=== PATIENT | female | born 1955 | race Caucasian/White ===

== ENCOUNTER 2020-11-04 12:53 | Outpatient (REF) | payer MEDICARE, MEDICAID, SELFPAY ==
--- NOTE | 2020-11-04 13:18 | MHC.AU.P13 ---
Hearing Instrument Follow-Up- Binaural Date of Visit: 11/04/20 Sanitation Supervisor Used: Right Ear: Practice Administrator: Phonak Model: Kriyari B50-P Serial Number: [id number] Repair Warranty: 06/07/2021 ORIGINAL WARRANTY Loss and Damage Warranty: 06/07/2021 ORIGINAL WARRANTY Battery Size: 13 Color: BEIGE Tubing: #2 SLIM TUBE Type of Mold: SLIM TIP #[id number] WARRANTY EXPIRES 01/25/2019 Left Ear: Practice Administrator: Phonak Model: BOLERO B50-P Serial Number: [id number] RepairWarranty: 06/07/2021 ORIGINAL WARRANTY Loss and Damage Warranty: 06/07/2021 ORIGINAL WARRANTY Battery Size: 13 Color: BEIGE Tubing: #2 SLIM TUBE Type of Mold: SLIM TIP #[id number] Follow-Up Summary: Hearing aids cleaned, #2 slim tubes changed, slim tips cleaned - left gasket glued as loose - both amplifying clearly. Patient now has [employer] which does NOT cover batteries, repairs, etc. No charge for today's visit. Recommendations: Recommendations: Hearing instrument follow-up or maintenance as needed. Signature: Provider: MIGUEL Rizzo-
== END 2020-11-04 12:54 | disposition home or self-care (01) ==
LOC: HO.HAP 12:53
PROVIDERS: Visit Provider Internal Medicine
DX: Z13.89 Encounter for screening for other disorder (principal)

== ENCOUNTER 2021-01-05 23:17 | Inpatient (IN) | payer OTHER, MEDICAID, SELFPAY ==
--- NOTE | ~2021-01-05 | CT_ITS ---
EXAMINATION: CT CHEST, ABDOMEN AND PELVIS WITH CONTRAST CLINICAL INFORMATION: Fall with pain COMPARISON: CT abdomen pelvis 07/08/2014 TECHNIQUE: Multidetector volumetric imaging was performed from the thoracic inlet through the pubic symphysis following administration of 75.3 mL of Omnipaque 350 intravenous contrast. Sagittal and coronal reformatted images were obtained on the technologist workstation. DLP: 2032 mGy-cm. 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 Moderate dependent changes along the posterior aspects of the lower lobes. 0.5 cm pulmonary nodule left upper lobe (series 8 image 250). 0.4 cm pulmonary nodule posterior segment left upper lobe (series 8 image 184). Trachea is midline and central airways are patent. Mediastinum: Heart size is normal. Left atrium appears prominent. Coronary artery calcifications. No pericardial effusion. No mediastinal or hilar adenopathy. Pleura: There is no significant effusion. No pleural mass or thickening. Chest Wall/Axilla: Unremarkable. ABDOMEN/PELVIS: Liver, Gallbladder, Biliary Tree: Focal nonmasslike hypodensity adjacent to the falciform ligament, classic in appearance and location for focal fatty infiltration. No other focal regions of abnormality involving the liver which is normal in size and contour. No intrahepatic biliary dilatation. Cholecystectomy. Pancreas: Unremarkable. Spleen: Unremarkable. Adrenal Glands: Unremarkable. Kidneys and Ureters: The kidneys are normal in size, shape, and attenuation. No hydronephrosis or hydroureter or calculi seen. No perinephric stranding. Small bilateral renal cysts. Bladder: Unremarkable. Gastrointestinal Tract: The small and large bowel are unremarkable. The appendix is greater than average size measuring 0.8 cm. No periappendiceal inflammatory changes to suggest acute appendicitis. The appendix is stable in its appearance since 2013. Abdominal Wall: No significant hernia is demonstrated. Lymph Nodes: No pathological lymphadenopathy within the abdomen or pelvis by CT criteria. Vascular: No abdominal aortic aneurysm. The IVC is singular and right-sided. Pelvic Viscera: Unremarkable. Osseous Structures: No acute osseous abnormality. Degenerative changes of the spine. CT/CT abdomen pelvis w con IMPRESSION: 1. No evidence of acute abnormality within the chest, abdomen or pelvis. 2. Pulmonary nodules as detailed above, the largest of which measures 0.5 cm in the left upper lobe. Resolution is limited by patient motion. According to the UPDATED 2017 Fleischner Society recommendations, the advised follow-up imaging for solid nodules < 6 mm is: LOW RISK PATIENT: No routine follow-up. HIGH RISK PATIENT: Optional CT at 12 months. 3. Other chronic and nonacute findings as above.
--- NOTE | ~2021-01-05 | CT_ITS ---
EXAM: CT HEAD WITHOUT CONTRAST CT CERVICAL SPINE INDICATION: Reason for Exam Fall, AMS TECHNIQUE: A noncontrast CT scan was performed from the skull base to the vertex. A noncontrast CT scan of the cervical spine was performed from the base of the skull through T1. Coronal and sagittal reformats were obtained at the acquisition workstation. Dose length product is 1275 mGy-cm. COMPARISON: PET/CT 10/08/2011 FINDINGS: Head: No evidence of intracranial hemorrhage or extra-axial fluid collection. No territorial infarction. Periventricular hypodensities have increased since the prior study and although nonspecific are most commonly reflective of chronic small vessel ischemic disease. No evidence of mass lesion, mass effect or midline shift. The ventricles are symmetric in configuration and normal in size. The basal cisterns are patent. The calvarium is intact. Limited views of the paranasal sinuses are unremarkable. Mastoid air cells are well aerated and middle ear cavities are clear. Cervical Spine: Cervical vertebral bodies are normal in height and alignment. Multilevel degenerative changes throughout the cervical spine characterized by degenerative disc disease, anterior osteophytes, uncovertebral spurring and mild neural foraminal stenoses. Spinous processes are well aligned and intact. The atlantodens articulation is normal. The atlantooccipital junction is unremarkable. Paravertebral muscles and fat planes are maintained. Limited views of the lung apices are unremarkable. Limited views of the thyroid are unremarkable. No bulky cervical lymphadenopathy is appreciated. CT/CT cervical spine wo con IMPRESSION: 1. No evidence of acute intracranial abnormality. 2. Degenerative changes of the cervical spine without CT evidence of acute injury.
--- NOTE | ~2021-01-05 | XR_ITS ---
EXAMINATION: XR KNEE, RIGHT CLINICAL INFORMATION: Pain, altered mental status, fall COMPARISON: None TECHNIQUE: Four views of the right knee. FINDINGS: Mild tricompartmental degenerative changes with joint space narrowing and small marginal osteophytes. Flattening of the medial femoral condyle, also likely related to degenerative changes. No radiographic evidence of acute fracture or subluxation. No significant joint effusion. Vascular calcifications. XR/XR knee RT 4V IMPRESSION: Degenerative changes without radiographic evidence of acute fracture or subluxation.
--- NOTE | ~2021-01-05 | CT_ITS ---
EXAM: CT HEAD WITHOUT CONTRAST CT CERVICAL SPINE INDICATION: Reason for Exam Fall, AMS TECHNIQUE: A noncontrast CT scan was performed from the skull base to the vertex. A noncontrast CT scan of the cervical spine was performed from the base of the skull through T1. Coronal and sagittal reformats were obtained at the acquisition workstation. Dose length product is 1275 mGy-cm. COMPARISON: PET/CT 10/08/2011 FINDINGS: Head: No evidence of intracranial hemorrhage or extra-axial fluid collection. No territorial infarction. Periventricular hypodensities have increased since the prior study and although nonspecific are most commonly reflective of chronic small vessel ischemic disease. No evidence of mass lesion, mass effect or midline shift. The ventricles are symmetric in configuration and normal in size. The basal cisterns are patent. The calvarium is intact. Limited views of the paranasal sinuses are unremarkable. Mastoid air cells are well aerated and middle ear cavities are clear. Cervical Spine: Cervical vertebral bodies are normal in height and alignment. Multilevel degenerative changes throughout the cervical spine characterized by degenerative disc disease, anterior osteophytes, uncovertebral spurring and mild neural foraminal stenoses. Spinous processes are well aligned and intact. The atlantodens articulation is normal. The atlantooccipital junction is unremarkable. Paravertebral muscles and fat planes are maintained. Limited views of the lung apices are unremarkable. Limited views of the thyroid are unremarkable. No bulky cervical lymphadenopathy is appreciated. CT/CT head/brain wo con IMPRESSION: 1. No evidence of acute intracranial abnormality. 2. Degenerative changes of the cervical spine without CT evidence of acute injury.
--- NOTE | ~2021-01-05 | XR_ITS ---
EXAMINATION: XR HAND, LEFT CLINICAL INFORMATION: Fall. Swelling. COMPARISON: Previous x-ray September 2011 TECHNIQUE: PA, lateral, and oblique views of the left hand. FINDINGS: Bone alignment is normal. No fracture or dislocation is seen. There may be mild degenerative change with joint space narrowing at the radiocarpal joint. There is mild ulnar minus variance. Joint spaces are otherwise normal. There is soft tissue arterial calcification. XR/XR hand LT min 3V IMPRESSION: No fracture or dislocation. Mild degenerative changes at the radiocarpal joint and ulnar minus variance.
--- NOTE | ~2021-01-05 | XR_ITS ---
EXAMINATION: CHEST 1 VIEW CLINICAL INFORMATION: Altered mental status. COMPARISON: 05/28/2010. TECHNIQUE: An AP view of the chest is provided. FINDINGS: The cardiac silhouette is not enlarged. The mediastinal and hilar contours are unremarkable. There are neither pleural effusions nor pneumothoraces. There are no consolidations. The osseous structures are stable. XR/XR chest 1V IMPRESSION: No evidence for acute disease.
--- NOTE | ~2021-01-05 | US_ITS ---
EXAMINATION: US VENOUS ULTRASOUND WITH DOPPLER LOWER EXTREMITY, LEFT CLINICAL INFORMATION: Left lower extremity swelling. History of DVT. COMPARISON: 06/02/2016 TECHNIQUE: Ultrasound of the deep veins is performed from the hip to the calf with compression sonography and color and pulse Doppler assessment. Spectral analysis with color-flow imaging is performed. FINDINGS: There is normal venous compression and respiratory variation and augmented flow. The visualized common femoral vein, superficial femoral vein, profunda femoral vein, and popliteal vein shows no evidence of deep venous thrombosis. The calf veins are not well visualized. There is no significant popliteal fossa cyst. If the patient's symptoms persist, followup ultrasound in 5 days 7 days might be of value to exclude proximal propagation from a non-visualized calf vein. US/US venous duplex LE IMPRESSION: No DVT demonstrated in the left lower extremity.
--- NOTE | ~2021-01-05 | CT_ITS ---
EXAMINATION: CT CHEST, ABDOMEN AND PELVIS WITH CONTRAST CLINICAL INFORMATION: Fall with pain COMPARISON: CT abdomen pelvis 07/08/2014 TECHNIQUE: Multidetector volumetric imaging was performed from the thoracic inlet through the pubic symphysis following administration of 75.3 mL of Omnipaque 350 intravenous contrast. Sagittal and coronal reformatted images were obtained on the technologist workstation. DLP: 2032 mGy-cm. 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 Moderate dependent changes along the posterior aspects of the lower lobes. 0.5 cm pulmonary nodule left upper lobe (series 8 image 250). 0.4 cm pulmonary nodule posterior segment left upper lobe (series 8 image 184). Trachea is midline and central airways are patent. Mediastinum: Heart size is normal. Left atrium appears prominent. Coronary artery calcifications. No pericardial effusion. No mediastinal or hilar adenopathy. Pleura: There is no significant effusion. No pleural mass or thickening. Chest Wall/Axilla: Unremarkable. ABDOMEN/PELVIS: Liver, Gallbladder, Biliary Tree: Focal nonmasslike hypodensity adjacent to the falciform ligament, classic in appearance and location for focal fatty infiltration. No other focal regions of abnormality involving the liver which is normal in size and contour. No intrahepatic biliary dilatation. Cholecystectomy. Pancreas: Unremarkable. Spleen: Unremarkable. Adrenal Glands: Unremarkable. Kidneys and Ureters: The kidneys are normal in size, shape, and attenuation. No hydronephrosis or hydroureter or calculi seen. No perinephric stranding. Small bilateral renal cysts. Bladder: Unremarkable. Gastrointestinal Tract: The small and large bowel are unremarkable. The appendix is greater than average size measuring 0.8 cm. No periappendiceal inflammatory changes to suggest acute appendicitis. The appendix is stable in its appearance since 2013. Abdominal Wall: No significant hernia is demonstrated. Lymph Nodes: No pathological lymphadenopathy within the abdomen or pelvis by CT criteria. Vascular: No abdominal aortic aneurysm. The IVC is singular and right-sided. Pelvic Viscera: Unremarkable. Osseous Structures: No acute osseous abnormality. Degenerative changes of the spine. CT/CT chest w con IMPRESSION: 1. No evidence of acute abnormality within the chest, abdomen or pelvis. 2. Pulmonary nodules as detailed above, the largest of which measures 0.5 cm in the left upper lobe. Resolution is limited by patient motion. According to the UPDATED 2017 Fleischner Society recommendations, the advised follow-up imaging for solid nodules < 6 mm is: LOW RISK PATIENT: No routine follow-up. HIGH RISK PATIENT: Optional CT at 12 months. 3. Other chronic and nonacute findings as above.
--- NOTE | ~2021-01-05 | MR_ITS ---
EXAMINATION: MR BRAIN WITHOUT CONTRAST CLINICAL INFORMATION: Confusion. COMPARISON: Head CT from 01/06/2021. TECHNIQUE: Multiplanar, multisequence imaging of the brain was performed without contrast. Limited study with motion artifacts. FINDINGS: No diffusion abnormalities are identified to suggest an acute or subacute infarct. The ventricles are normal in size. No mass effect or midline shift is seen. Mild chronic white matter microangiopathic changes noted. No extra-axial fluid collections are seen. The cerebellum is normal. Minimal small vessel ischemic changes present in the [place]. The gradient refocused acquisition is normal. The craniovertebral junction, marrow signal, and midline structures are normal. The major intracranial flow voids at the level of the [place] are preserved. The dural venous sinus flow voids are maintained. The mastoid air cells and paranasal sinuses are fairly well aerated. MR/MR head/brain wo con IMPRESSION: Limited study with motion artifacts. No acute intracranial process. Mild chronic white matter microangiopathy.
[2021-01-05 23:46] VITALS: BP 158/79; PULSE 116; RESP 24; O2SAT 99; BMI 31.8
[2021-01-05 23:55] LABS: Glucose, Whole Blood 159 mg/dL (60-115)
[2021-01-06] VITALS (9 sets, daily range): BP systolic 120–151; BP diastolic 79–96; PULSE 96–129; RESP 20–25; TEMP 36–37.1; O2SAT 94–98
--- NOTE | 2021-01-06 00:01 | ECG_ITS ---
Test Reason : MEDICAL Blood Pressure : / mmHG Vent. Rate : 137 BPM Atrial Rate : 136 BPM P-R Int : 000 ms QRS Dur : 110 ms QT Int : 344 ms P-R-T Axes : 000 073 -36 degrees QTc Int : 519 ms Atrial fibrillation with rapid ventricular response with premature ventricular or aberrantly conducted complexes Incomplete right bundle branch block ST & T wave abnormality, consider inferior ischemia ST & T wave abnormality, consider anterior ischemia Abnormal ECG No previous ECGs available Referred By: Loli Schmid Electronically Signed By:Pelon Moses
--- NOTE | 2021-01-06 00:30 | ED_ITS ---
HPI - General Adult General Chief complaint: General Medical Stated complaint: FALL Time Seen by Provider: 01/06/21 00:00 Source: EMS Mode of arrival: EMS History of Present Illness HPI narrative: This is 65-year-old female who is brought in by EMS who states that they found the patient on the ground after a friend called because she had not heard from her for 3 days. As per EMS patient was found in her own feces. Patient is noted to be altered on arrival and unable to provide meaningful information. Although she states that she is at the hospital she keeps saying that she needs to find her cat Debbie. Related Data Allergies Allergy/AdvReac Type Severity Reaction Status Date / Time amoxicillin Allergy Unknown Verified 04/27/18 00:00 No Known Allergies Allergy Unverified 06/26/20 15:41 Review of Systems Review of Systems: Yes Unobtainable due to mental status PMFSH Past Medical History Source: nursing notes reviewed Medical History Diabetes Social History Social History Alcohol intake: unknown Smoking Status: Smoker, status unknown Use of substances other than those prescribed or required for medical reasons: No Advance Directives: No Physical Exam Vital Signs: Vital Signs: Last Vital Signs Temp 98.7 F 01/06/21 05:59 Pulse 117 H 01/06/21 08:21 Resp 20 01/06/21 07:25 BP 151/85 H 01/06/21 08:21 Pulse Ox 98 01/06/21 07:25 Body Mass Index 31.8 VITAL SIGNS: Reviewed. GENERAL: Well developed, well nourished, in no acute distress. HEAD: Normocephalic/atraumatic, EYES: PERRLA, EOMI intact without pain, no nystagmus/pallor/icterus noted EARS: Ext canals without abnormality, TMs non-bulging and non-erythematous NOSE: Nares patent bilateral OROPHARYNX: no oral lesions noted, posterior pharynx clear, dry mucosa NECK: Supple, no adenopathy LUNGS: Normal breath sounds. No adventitious sounds or accessory muscle use. SpO2<99> CARDIOVASCULAR: IRR/IRR without noted murmurs ABDOMEN: Soft, non-tender, non-distended with bowel sounds. MUSCULOSKELETAL: No tenderness, deformities, or effusions noted on gross inspection, but abrasion noted to the right knee and otherwise there are scattered ecchymoses on all extremities as well as trunk of this patient. EXTREMITIES: No cyanosis, clubbing or edema. SKIN: Inspection of the skin reveals no rashes NEUROLOGIC: GCS-14, Alert and oriented x 2. Strength and sensation to light touch were grossly intact x 4. Course Course Course Narrative: This is a 65-year-old female with history and clinical presentation consistent with altered mental status unclear etiology in will evaluate for evidence of intracranial/infection/metabolic etiologies. Review of all investigations patient is noted to be in atrial fibrillation with RVR and unclear whether not patient has history of atrial fibrillation as she is unable to communicate meaningfully at this time and there are no prior EKGs to review. Patient provided with Lopressor for rate control, received 2L IV fluids/antibiotics/Lopressor. Patient is having left hand pain and will evaluate with an x-ray. With time patient has gradually improved in her mentation, suspect this is at least in part due to rehydration. Will repeat labs, but unclear what inciting event may have been. Case discussed with inpatient hospitalist team who was agreeable for admission. Medical Decision Making Lab Data Result diagrams: 01/06/21 02:00 01/06/21 02:00 Labs: Lab Results 01/05/21 01/06/21 01/06/21 Range/Units 23:51 01:58 01:59 WBC (4.8-10.8) X10*3/uL RBC (4.20-5.50) X10*6/uL Hgb (12.0-16.0) g/dl Hct (37-47) % MCV (80-98) fL MCH (27.0-33.0) pg MCHC (31.0-35.0) g/dl RDW (11.0-16.0) % Plt Count (160-400) X10*3/uL MPV (9.4-12.3) fL Immature Gran % (Auto) (0.0-0.4) % Neut % (Auto) (45-73) % Lymph % (Auto) (20-40) % [place] % (Auto) (2-11) % Eos % (Auto) (0-4) % Baso % (Auto) (0-2) % Lymph # (Auto) (1.2-4.9) X10*3/uL [place] # (Auto) (0.1-1.2) X10*3/uL Eos # (Auto) (0.0-0.4) X10*3/uL Baso # (Auto) (0.0-0.2) X10*3/uL Abs Immat Gran (auto) (0.00-0.03) X10*3/uL Absolute Neuts (auto) (2.0-8.3) X10*3/uL Absolute Nucleated RBC (0.0-0.012) X10*3/uL Nucleated RBC % (auto) (0.0-0.2) /100WBC PT (10.8-13.0) SEC INR (0.9-1.1) VBG pH Cancelled VBG pCO2 Cancelled VBG pO2 Cancelled VBG HCO3 Cancelled VBG O2 Saturation Cancelled VBG Base Excess Cancelled Sodium (135-145) mmol/L Potassium (3.3-5.1) mmol/L Chloride (96-108) mmol/L Carbon Dioxide (22-29) mmol/L Anion Gap (12-20) BUN (9-16) mg/dL Creatinine (0.5-1.4) mg/dL Estim Creat Clear Calc Estimated GFR POC Glucose 159 H (60-115) mg/dL Random Glucose (60-115) mg/dL Lactic Acid 2.4 H* (0.5-2.0) mmol/L Lactic Acid Fup @ 2Hr (0.5-2.0) mmol/L Calcium (8.4-10.2) mg/dL Magnesium (1.6-2.6) mg/dL Total Bilirubin (0.0-1.0) mg/dL AST (5-31) U/L ALT (0-31) U/L Alkaline Phosphatase (39-117) U/L Ammonia (13-55) umol/L Total Creatine Kinase (26-140) U/L Troponin I High Sens (<3.5-17.0) ng/L Total Protein (6.5-8.0) g/dL Albumin (3.5-5.0) g/dL Lipase (8-78) U/L Urine Color Urine Appearance Urine pH (5.0-8.0) Ur Specific [place] (1.005-1.025) Urine Protein (NEG-TRACE) MG/DL Urine Glucose (UA) (NEG) MG/DL Urine Ketones (NEG) MG/DL Urine Blood (NEG) Urine Nitrite (NEG) Ur Leukocyte Esterase (NEG) Urine RBC (0) /HPF Urine WBC (0-4) /HPF Ur Squamous Epith Cells /LPF Urine Bacteria /LPF Urine Test (NEGATIVE) Urine Opiates Screen (Not Detect) Ur Barbiturates Screen (Not Detect) Ur Phencyclidine Scrn (Not Detect) Ur Amphetamines Screen (Not Detect) U Benzodiazepines Scrn (Not Detect) Urine Cocaine Screen (Not Detect) U Marijuana (THC) Screen (Not Detect) Ethyl Alcohol mg/dL Coronavirus (PCR) (Negative) Influenza Type A (PCR) (Negative) Influenza Type B (PCR) (Negative) RSV RNA Qual (PCR) (Negative) 01/06/21 01/06/21 01/06/21 Range/Units 01:59 02:00 02:00 WBC 17.0 H (4.8-10.8) X10*3/uL RBC 4.46 (4.20-5.50) X10*6/uL Hgb 14.4 (12.0-16.0) g/dl Hct 41.1 (37-47) % MCV 92.2 (80-98) fL MCH 32.3 (27.0-33.0) pg MCHC 35.0 (31.0-35.0) g/dl RDW 12.3 (11.0-16.0) % Plt Count 182 (160-400) X10*3/uL MPV 10.1 (9.4-12.3) fL Immature Gran % (Auto) 0.5 H (0.0-0.4) % Neut % (Auto) 85.4 H (45-73) % Lymph % (Auto) 6.7 L (20-40) % [place]iteside % (Auto) 7.0 (2-11) % Eos % (Auto) 0.2 (0-4) % Baso % (Auto) 0.2 (0-2) % Lymph # (Auto) 1.1 L (1.2-4.9) X10*3/uL [place] # (Auto) 1.2 (0.1-1.2) X10*3/uL Eos # (Auto) 0.0 (0.0-0.4) X10*3/uL Baso # (Auto) 0.0 (0.0-0.2) X10*3/uL Abs Immat Gran (auto) 0.09 H (0.00-0.03) X10*3/uL Absolute Neuts (auto) 14.5 H (2.0-8.3) X10*3/uL Absolute Nucleated RBC 0.000 (0.0-0.012) X10*3/uL Nucleated RBC % (auto) 0.0 (0.0-0.2) /100WBC PT (10.8-13.0) SEC INR (0.9-1.1) VBG pH VBG pCO2 VBG pO2 VBG HCO3 VBG O2 Saturation VBG Base Excess Sodium 139 (135-145) mmol/L Potassium 4.2 (3.3-5.1) mmol/L Chloride 105 (96-108) mmol/L Carbon Dioxide 18 L (22-29) mmol/L Anion Gap 20 (12-20) BUN 29 H (9-16) mg/dL Creatinine 0.97 (0.5-1.4) mg/dL Estim Creat Clear Calc 64.2 Estimated GFR 57 POC Glucose (60-115) mg/dL Random Glucose 172 H (60-115) mg/dL Lactic Acid (0.5-2.0) mmol/L Lactic Acid Fup @ 2Hr (0.5-2.0) mmol/L Calcium 8.9 (8.4-10.2) mg/dL Magnesium 1.7 (1.6-2.6) mg/dL Total Bilirubin 1.8 H (0.0-1.0) mg/dL AST 35 H (5-31) U/L ALT 22 (0-31) U/L Alkaline Phosphatase 63 (39-117) U/L Ammonia 30 (13-55) umol/L Total Creatine Kinase (26-140) U/L Troponin I High Sens (<3.5-17.0) ng/L Total Protein 7.1 (6.5-8.0) g/dL Albumin 4.3 (3.5-5.0) g/dL Lipase 44 (8-78) U/L Urine Color Urine Appearance Urine pH (5.0-8.0) Ur Specific [place] (1.005-1.025) Urine Protein (NEG-TRACE) MG/DL Urine Glucose (UA) (NEG) MG/DL Urine Ketones (NEG) MG/DL Urine Blood (NEG) Urine Nitrite (NEG) Ur Leukocyte Esterase (NEG) Urine RBC (0) /HPF Urine WBC (0-4) /HPF Ur Squamous Epith Cells /LPF Urine Bacteria /LPF Urine Test (NEGATIVE) Urine Opiates Screen (Not Detect) Ur Barbiturates Screen (Not Detect) Ur Phencyclidine Scrn (Not Detect) Ur Amphetamines Screen (Not Detect) U Benzodiazepines Scrn (Not Detect) Urine Cocaine Screen (Not Detect) U Marijuana (THC) Screen (Not Detect) Ethyl Alcohol mg/dL Coronavirus (PCR) (Negative) Influenza Type A (PCR) (Negative) Influenza Type B (PCR) (Negative) RSV RNA Qual (PCR) (Negative) 01/06/21 01/06/21 01/06/21 Range/Units 02:00 02:00 02:00 WBC (4.8-10.8) X10*3/uL RBC (4.20-5.50) X10*6/uL Hgb (12.0-16.0) g/dl Hct (37-47) % MCV (80-98) fL MCH (27.0-33.0) pg MCHC (31.0-35.0) g/dl RDW (11.0-16.0) % Plt Count (160-400) X10*3/uL MPV (9.4-12.3) fL Immature Gran % (Auto) (0.0-0.4) % Neut % (Auto) (45-73) % Lymph % (Auto) (20-40) % [place] % (Auto) (2-11) % Eos % (Auto) (0-4) % Baso % (Auto) (0-2) % Lymph # (Auto) (1.2-4.9) X10*3/uL [place] # (Auto) (0.1-1.2) X10*3/uL Eos # (Auto) (0.0-0.4) X10*3/uL Baso # (Auto) (0.0-0.2) X10*3/uL Abs Immat Gran (auto) (0.00-0.03) X10*3/uL Absolute Neuts (auto) (2.0-8.3) X10*3/uL Absolute Nucleated RBC (0.0-0.012) X10*3/uL Nucleated RBC % (auto) (0.0-0.2) /100WBC PT (10.8-13.0) SEC INR (0.9-1.1) VBG pH VBG pCO2 VBG pO2 VBG HCO3 VBG O2 Saturation VBG Base Excess Sodium (135-145) mmol/L Potassium (3.3-5.1) mmol/L Chloride (96-108) mmol/L Carbon Dioxide (22-29) mmol/L Anion Gap (12-20) BUN (9-16) mg/dL Creatinine (0.5-1.4) mg/dL Estim Creat Clear Calc Estimated GFR POC Glucose (60-115) mg/dL Random Glucose (60-115) mg/dL Lactic Acid (0.5-2.0) mmol/L Lactic Acid Fup @ 2Hr (0.5-2.0) mmol/L Calcium (8.4-10.2) mg/dL Magnesium (1.6-2.6) mg/dL Total Bilirubin (0.0-1.0) mg/dL AST (5-31) U/L ALT (0-31) U/L Alkaline Phosphatase (39-117) U/L Ammonia (13-55) umol/L Total Creatine Kinase 770 H (26-140) U/L Troponin I High Sens 14.5 (<3.5-17.0) ng/L Total Protein (6.5-8.0) g/dL Albumin (3.5-5.0) g/dL Lipase (8-78) U/L Urine Color Urine Appearance Urine pH (5.0-8.0) Ur Specific [place] (1.005-1.025) Urine Protein (NEG-TRACE) MG/DL Urine Glucose (UA) (NEG) MG/DL Urine Ketones (NEG) MG/DL Urine Blood (NEG) Urine Nitrite (NEG) Ur Leukocyte Esterase (NEG) Urine RBC (0) /HPF Urine WBC (0-4) /HPF Ur Squamous Epith Cells /LPF Urine Bacteria /LPF Urine Test (NEGATIVE) Urine Opiates Screen (Not Detect) Ur Barbiturates Screen (Not Detect) Ur Phencyclidine Scrn (Not Detect) Ur Amphetamines Screen (Not Detect) U Benzodiazepines Scrn (Not Detect) Urine Cocaine Screen (Not Detect) U Marijuana (THC) Screen (Not Detect) Ethyl Alcohol < 10 mg/dL Coronavirus (PCR) (Negative) Influenza Type A (PCR) (Negative) Influenza Type B (PCR) (Negative) RSV RNA Qual (PCR) (Negative) 01/06/21 01/06/21 01/06/21 Range/Units 02:07 02:10 02:10 WBC (4.8-10.8) X10*3/uL RBC (4.20-5.50) X10*6/uL Hgb (12.0-16.0) g/dl Hct (37-47) % MCV (80-98) fL MCH (27.0-33.0) pg MCHC (31.0-35.0) g/dl RDW (11.0-16.0) % Plt Count (160-400) X10*3/uL MPV (9.4-12.3) fL Immature Gran % (Auto) (0.0-0.4) % Neut % (Auto) (45-73) % Lymph % (Auto) (20-40) % [place] % (Auto) (2-11) % Eos % (Auto) (0-4) % Baso % (Auto) (0-2) % Lymph # (Auto) (1.2-4.9) X10*3/uL [place] # (Auto) (0.1-1.2) X10*3/uL Eos # (Auto) (0.0-0.4) X10*3/uL Baso # (Auto) (0.0-0.2) X10*3/uL Abs Immat Gran (auto) (0.00-0.03) X10*3/uL Absolute Neuts (auto) (2.0-8.3) X10*3/uL Absolute Nucleated RBC (0.0-0.012) X10*3/uL Nucleated RBC % (auto) (0.0-0.2) /100WBC PT (10.8-13.0) SEC INR (0.9-1.1) VBG pH 7.37 VBG pCO2 33 VBG pO2 59 VBG HCO3 19 L VBG O2 Saturation 87.0 VBG Base Excess -4.6 Sodium (135-145) mmol/L Potassium (3.3-5.1) mmol/L Chloride (96-108) mmol/L Carbon Dioxide (22-29) mmol/L Anion Gap (12-20) BUN (9-16) mg/dL Creatinine (0.5-1.4) mg/dL Estim Creat Clear Calc Estimated GFR POC Glucose (60-115) mg/dL Random Glucose (60-115) mg/dL Lactic Acid (0.5-2.0) mmol/L Lactic Acid Fup @ 2Hr (0.5-2.0) mmol/L Calcium (8.4-10.2) mg/dL Magnesium (1.6-2.6) mg/dL Total Bilirubin (0.0-1.0) mg/dL AST (5-31) U/L ALT (0-31) U/L Alkaline Phosphatase (39-117) U/L Ammonia (13-55) umol/L Total Creatine Kinase (26-140) U/L Troponin I High Sens (<3.5-17.0) ng/L Total Protein (6.5-8.0) g/dL Albumin (3.5-5.0) g/dL Lipase (8-78) U/L Urine Color DARK YELLOW Urine Appearance HAZY Urine pH 5.5 (5.0-8.0) Ur Specific [place] >= 1.030 H (1.005-1.025) Urine Protein 2+ H (NEG-TRACE) MG/DL Urine Glucose (UA) NEG (NEG) MG/DL Urine Ketones 40 (NEG) MG/DL Urine Blood TRACE (NEG) Urine Nitrite NEG (NEG) Ur Leukocyte Esterase NEG (NEG) Urine RBC 0 (0) /HPF Urine WBC 0-2 (0-4) /HPF Ur Squamous Epith Cells 4+ /LPF Urine Bacteria 3+ /LPF Urine Test NEGATIVE (NEGATIVE) Urine Opiates Screen (Not Detect) Ur Barbiturates Screen (Not Detect) Ur Phencyclidine Scrn (Not Detect) Ur Amphetamines Screen (Not Detect) U Benzodiazepines Scrn (Not Detect) Urine Cocaine Screen (Not Detect) U Marijuana (THC) Screen (Not Detect) Ethyl Alcohol mg/dL Coronavirus (PCR) (Negative) Influenza Type A (PCR) (Negative) Influenza Type B (PCR) (Negative) RSV RNA Qual (PCR) (Negative) 01/06/21 01/06/21 01/06/21 Range/Units 02:10 02:11 02:11 WBC (4.8-10.8) X10*3/uL RBC (4.20-5.50) X10*6/uL Hgb (12.0-16.0) g/dl Hct (37-47) % MCV (80-98) fL MCH (27.0-33.0) pg MCHC (31.0-35.0) g/dl RDW (11.0-16.0) % Plt Count (160-400) X10*3/uL MPV (9.4-12.3) fL Immature Gran % (Auto) (0.0-0.4) % Neut % (Auto) (45-73) % Lymph % (Auto) (20-40) % [place] % (Auto) (2-11) % Eos % (Auto) (0-4) % Baso % (Auto) (0-2) % Lymph # (Auto) (1.2-4.9) X10*3/uL [place] # (Auto) (0.1-1.2) X10*3/uL Eos # (Auto) (0.0-0.4) X10*3/uL Baso # (Auto) (0.0-0.2) X10*3/uL Abs Immat Gran (auto) (0.00-0.03) X10*3/uL Absolute Neuts (auto) (2.0-8.3) X10*3/uL Absolute Nucleated RBC (0.0-0.012) X10*3/uL Nucleated RBC % (auto) (0.0-0.2) /100WBC PT 14.5 H (10.8-13.0) SEC INR 1.2 H (0.9-1.1) VBG pH VBG pCO2 VBG pO2 VBG HCO3 VBG O2 Saturation VBG Base Excess Sodium (135-145) mmol/L Potassium (3.3-5.1) mmol/L Chloride (96-108) mmol/L Carbon Dioxide (22-29) mmol/L Anion Gap (12-20) BUN (9-16) mg/dL Creatinine (0.5-1.4) mg/dL Estim Creat Clear Calc Estimated GFR POC Glucose (60-115) mg/dL Random Glucose (60-115) mg/dL Lactic Acid (0.5-2.0) mmol/L Lactic Acid Fup @ 2Hr (0.5-2.0) mmol/L Calcium (8.4-10.2) mg/dL Magnesium (1.6-2.6) mg/dL Total Bilirubin (0.0-1.0) mg/dL AST (5-31) U/L ALT (0-31) U/L Alkaline Phosphatase (39-117) U/L Ammonia (13-55) umol/L Total Creatine Kinase (26-140) U/L Troponin I High Sens (<3.5-17.0) ng/L Total Protein (6.5-8.0) g/dL Albumin (3.5-5.0) g/dL Lipase (8-78) U/L Urine Color Urine Appearance Urine pH (5.0-8.0) Ur Specific [place] (1.005-1.025) Urine Protein (NEG-TRACE) MG/DL Urine Glucose (UA) (NEG) MG/DL Urine Ketones (NEG) MG/DL Urine Blood (NEG) Urine Nitrite (NEG) Ur Leukocyte Esterase (NEG) Urine RBC (0) /HPF Urine WBC (0-4) /HPF Ur Squamous Epith Cells /LPF Urine Bacteria /LPF Urine Test (NEGATIVE) Urine Opiates Screen Not Detected (Not Detect) Ur Barbiturates Screen Not Detected (Not Detect) Ur Phencyclidine Scrn Not Detected (Not Detect) Ur Amphetamines Screen Not Detected (Not Detect) U Benzodiazepines Scrn Not Detected (Not Detect) Urine Cocaine Screen Not Detected (Not Detect) U Marijuana (THC) Screen Not Detected (Not Detect) Ethyl Alcohol mg/dL Coronavirus (PCR) NEGATIVE (Negative) Influenza Type A (PCR) NEGATIVE (Negative) Influenza Type B (PCR) NEGATIVE (Negative) RSV RNA Qual (PCR) NEGATIVE (Negative) 01/06/21 Range/Units 05:58 WBC (4.8-10.8) X10*3/uL RBC (4.20-5.50) X10*6/uL Hgb (12.0-16.0) g/dl Hct (37-47) % MCV (80-98) fL MCH (27.0-33.0) pg MCHC (31.0-35.0) g/dl RDW (11.0-16.0) % Plt Count (160-400) X10*3/uL MPV (9.4-12.3) fL Immature Gran % (Auto) (0.0-0.4) % Neut % (Auto) (45-73) % Lymph % (Auto) (20-40) % [place] % (Auto) (2-11) % Eos % (Auto) (0-4) % Baso % (Auto) (0-2) % Lymph # (Auto) (1.2-4.9) X10*3/uL [place] # (Auto) (0.1-1.2) X10*3/uL Eos # (Auto) (0.0-0.4) X10*3/uL Baso # (Auto) (0.0-0.2) X10*3/uL Abs Immat Gran (auto) (0.00-0.03) X10*3/uL Absolute Neuts (auto) (2.0-8.3) X10*3/uL Absolute Nucleated RBC (0.0-0.012) X10*3/uL Nucleated RBC % (auto) (0.0-0.2) /100WBC PT (10.8-13.0) SEC INR (0.9-1.1) VBG pH VBG pCO2 VBG pO2 VBG HCO3 VBG O2 Saturation VBG Base Excess Sodium (135-145) mmol/L Potassium (3.3-5.1) mmol/L Chloride (96-108) mmol/L Carbon Dioxide (22-29) mmol/L Anion Gap (12-20) BUN (9-16) mg/dL Creatinine (0.5-1.4) mg/dL Estim Creat Clear Calc Estimated GFR POC Glucose (60-115) mg/dL Random Glucose (60-115) mg/dL Lactic Acid (0.5-2.0) mmol/L Lactic Acid Fup @ 2Hr 1.6 (0.5-2.0) mmol/L Calcium (8.4-10.2) mg/dL Magnesium (1.6-2.6) mg/dL Total Bilirubin (0.0-1.0) mg/dL AST (5-31) U/L ALT (0-31) U/L Alkaline Phosphatase (39-117) U/L Ammonia (13-55) umol/L Total Creatine Kinase (26-140) U/L Troponin I High Sens (<3.5-17.0) ng/L Total Protein (6.5-8.0) g/dL Albumin (3.5-5.0) g/dL Lipase (8-78) U/L Urine Color Urine Appearance Urine pH (5.0-8.0) Ur Specific [place] (1.005-1.025) Urine Protein (NEG-TRACE) MG/DL Urine Glucose (UA) (NEG) MG/DL Urine Ketones (NEG) MG/DL Urine Blood (NEG) Urine Nitrite (NEG) Ur Leukocyte Esterase (NEG) Urine RBC (0) /HPF Urine WBC (0-4) /HPF Ur Squamous Epith Cells /LPF Urine Bacteria /LPF Urine Test (NEGATIVE) Urine Opiates Screen (Not Detect) Ur Barbiturates Screen (Not Detect) Ur Phencyclidine Scrn (Not Detect) Ur Amphetamines Screen (Not Detect) U Benzodiazepines Scrn (Not Detect) Urine Cocaine Screen (Not Detect) U Marijuana (THC) Screen (Not Detect) Ethyl Alcohol mg/dL Coronavirus (PCR) (Negative) Influenza Type A (PCR) (Negative) Influenza Type B (PCR) (Negative) RSV RNA Qual (PCR) (Negative) ECG Data Attestation: I personally reviewed and interpreted this ECG as follows: Prior ECG tracings: not available for review Interpretation: Atrial fibrillation with RVR, HR-137, incomplete right bundle branch block Discharge Plan Discharge Clinical Impression: Atrial fibrillation with RVR Rhabdomyolysis Qualifiers: Rhabdomyolysis type: traumatic Encounter type: initial encounter Qualified Code(s): T79.6XXA - Traumatic ischemia of muscle, initial encounter Patient Disposition: Admitted As Inpatient
--- NOTE | 2021-01-06 00:49 | PC.NURSE ---
THIS PCT REPORT TO RN ISEBELLE THAT PATIENT IS COMBATIVE ,NOT ABLE TO GET EKG OR STRAIGHT CATH .
[2021-01-06] MEDS: 0.9 % Sodium Chloride 2,000 ML 999 ML IV (01:03)
[2021-01-06] MEDS: LORazepam 2 MG/ML VIAL 1 MG IVPUSH (01:03)
--- NOTE | 2021-01-06 01:29 | PC.NURSE ---
Pt refusing lab draw, and straight cath. Attempting EKG now. Multiple bruises/abrasions noted throughout body of unknown cause/origin. Upon arrival, pt was soiled with a combination of dried and fresh stool and urine. Denied pain when asked, but upon palpation, pain noted to bilateral knees (worse on the right side), left side of chest, and left eye. Pt states I need to find my chava Debbie , and states I'm at the hospital . Pt does not know which hospital she is at, doesn't know time, and is refusing to state her own name. Pt medicated as ordered, awaiting medication to take effect and will reattempt, and reask about blood draw at a later time.
[2021-01-06 02:06] LABS: Basophils Percent Auto 0.2 % (0-2); Eosinophils Percent Auto 0.2 % (0-4); Hematocrit 41.1 % (37-47); Hemoglobin 14.4 g/dl (12.0-16.0); Imm Gran Abs Auto 0.09 X10*3/uL (0.00-0.03); Imm Gran Pct Auto 0.5 % (0.0-0.4); Lymphocytes Absolute Auto 1.1 X10*3/uL (1.2-4.9); Lymphocytes Percent Auto 6.7 % (20-40); MANUAL DIFF FLAG NO; Mean Corpuscular Hemoglobin 32.3 pg (27.0-33.0); Mean Corpuscular Volume 92.2 fL (80-98); Mean Platelet Volume 10.1 fL (9.4-12.3); Monocytes Absolute Auto 1.2 X10*3/uL (0.1-1.2); Neutrophils Absolute Auto 14.5 X10*3/uL (2.0-8.3); Neutrophils Percent Auto 85.4 % (45-73); Platelet Count 182 X10*3/uL (160-400); Red Blood Count 4.46 X10*6/uL (4.20-5.50); Red Cell Distribution Width 12.3 % (11.0-16.0)
[2021-01-06 02:12] LABS: VBG Base Excess -4.6 mmol/L; VBG HCO3 19 mmol/L (22-26); VBG pCO2 33 mmHg; VBG pH 7.37 (7.32-7.43); VBG pO2 59 mmHg
--- NOTE | 2021-01-06 02:17 | PC.NURSE ---
RN BRENDAN AWARE OF PATIENT HIGH HEART RATE .
--- NOTE | 2021-01-06 02:18 | PC.NURSE ---
PATIENT LAB DRAW ,EKG AND STRAIGHT CATH AND COVID SWAB WAS DONE BY THIS PCT AND PCT KAIA .
[2021-01-06 02:24] LABS: INTERNATIONAL NORM RATIO 1.2 (0.9-1.1); Prothrombin Time 14.5 SEC (10.8-13.0)
[2021-01-06 02:26] LABS: Glucose Urine UA NEG (NEG); Leukocyte Esterase Urine NEG (NEG); Nitrite Urine NEG (NEG); PH 5.5 (5.0-8.0); Specific Gravity - Urine >= 1.030 (1.005-1.025); Urine Blood TRACE (NEG); Urine Ketones 40 MG/DL (NEG); Urine Protein 2+ MG/DL (NEG-TRACE)
[2021-01-06 02:27] LABS: Appearance Urine HAZY; Color Urine DARK YELLOW
[2021-01-06 02:28] LABS: UPreg QC Valid YES; Urine Pregnancy NEGATIVE (NEGATIVE)
[2021-01-06 02:34] LABS: Bacteria Urine 3+ /LPF; RBC Urine 0 /HPF (0); Squamous Epithelial Cell Urine 4+ /LPF; WBC Urine 0-2 /HPF (0-4)
[2021-01-06 02:35] LABS: Alanine Aminotransferase 22 U/L (0-31); Albumin Level 4.3 g/dL (3.5-5.0); Alkaline Phosphatase 63 U/L (39-117); Anion Gap 20 (12-20); Aspartate Amino Transferase 35 U/L (5-31); Bilirubin Total 1.8 mg/dL (0.0-1.0); Blood Urea Nitrogen 29 mg/dL (9-16); Calcium 8.9 mg/dL (8.4-10.2); Carbon Dioxide 18 mmol/L (22-29); Chloride 105 mmol/L (96-108); Creatinine Clr Calc Pharmacy 64.2; Estimated Glomerular Filt Rate 57; Glucose Random 172 mg/dL (60-115); Lipase 44 U/L (8-78); Magnesium 1.7 mg/dL (1.6-2.6); Potassium 4.2 mmol/L (3.3-5.1); Sodium 139 mmol/L (135-145); Total Protein 7.1 g/dL (6.5-8.0)
[2021-01-06 02:35] LABS: Venous Blood Gas Refer to POC result
[2021-01-06 02:43] LABS: Lactic Acid 2.4 mmol/L (0.5-2.0)
[2021-01-06 02:44] LABS: Ammonia 30 umol/L (13-55)
[2021-01-06 02:44] LABS: Ethanol < 10 mg/dL
[2021-01-06] MEDS: cefTRIAXone sodium 1 GM in 0.9 % Sodium Chloride 50 ML IV (02:47)
[2021-01-06] MEDS: Metoprolol Tartrate 5 MG/5 ML VIAL IVPUSH ×2 (02:47→08:21)
[2021-01-06 02:55] LABS: Influenza A PCR NEGATIVE (Negative); Influenza B PCR NEGATIVE (Negative); Resp Syncy Virus RNA Qual PCR NEGATIVE (Negative); SARS COV2 PCR INHOUSE NEGATIVE (Negative)
[2021-01-06 02:58] LABS: Amphetamine Screen Urine Not Detected (Not Detect); Barbiturates, Urine Not Detected (Not Detect); Benzodiazepines Screen Urine Not Detected (Not Detect); Cannabinoid Screen Urine Not Detected (Not Detect); Cocaine Screen Urine Not Detected (Not Detect); Opiate Screen Urine Not Detected (Not Detect); Phencyclidine Screen Urine Not Detected (Not Detect)
[2021-01-06 03:05] LABS: Troponin-I High Sensitivity 14.5 ng/L (<3.5-17.0)
[2021-01-06 04:05] LABS: Reflex Lactate? Lactic Acid Added
[2021-01-06 06:27] LABS: ~Lactic Acid-LAB USE ONLY 1.6 mmol/L (0.5-2.0)
[2021-01-06] MEDS: 0.9 % Sodium Chloride 1,000 ML 999 ML IV (07:24)
[2021-01-06] MEDS: iohexoL 350 MG/ML 75 ML INFUS..BTL IV (07:25)
--- NOTE | 2021-01-06 07:26 | PC.NURSE ---
Pt is awake, alert, answering questions appropriately.
[2021-01-06 09:28] LABS: Alanine Aminotransferase 23 U/L (0-31); Albumin Level 3.7 g/dL (3.5-5.0); Alkaline Phosphatase 57 U/L (39-117); Anion Gap 18 (12-20); Aspartate Amino Transferase 44 U/L (5-31); Bilirubin Total 1.5 mg/dL (0.0-1.0); Blood Urea Nitrogen 25 mg/dL (9-16); Calcium 8.2 mg/dL (8.4-10.2); Carbon Dioxide 19 mmol/L (22-29); Chloride 108 mmol/L (96-108); Estimated Glomerular Filt Rate > 60; Glucose Random 156 mg/dL (60-115); Potassium 4.7 mmol/L (3.3-5.1); Sodium 140 mmol/L (135-145); Total Protein 6.5 g/dL (6.5-8.0)
[2021-01-06 10:08] LABS: MANUAL DIFF FLAG NO
[2021-01-06 10:10] LABS: Basophils Percent Auto 0.2 % (0-2); Eosinophils Absolute Auto 0.1 X10*3/uL (0.0-0.4); Eosinophils Percent Auto 0.6 % (0-4); Hematocrit 37.9 % (37-47); Hemoglobin 13.1 g/dl (12.0-16.0); Imm Gran Abs Auto 0.06 X10*3/uL (0.00-0.03); Imm Gran Pct Auto 0.4 % (0.0-0.4); Lymphocytes Absolute Auto 1.5 X10*3/uL (1.2-4.9); Lymphocytes Percent Auto 9.5 % (20-40); Mean Corpuscular HGB Conc 34.6 g/dl (31.0-35.0); Mean Corpuscular Hemoglobin 32.1 pg (27.0-33.0); Mean Corpuscular Volume 92.9 fL (80-98); Mean Platelet Volume 9.8 fL (9.4-12.3); Monocytes Absolute Auto 1.3 X10*3/uL (0.1-1.2); Monocytes Percent Auto 8.4 % (2-11); Neutrophils Absolute Auto 12.8 X10*3/uL (2.0-8.3); Neutrophils Percent Auto 80.9 % (45-73); Platelet Count 162 X10*3/uL (160-400); Red Blood Count 4.08 X10*6/uL (4.20-5.50); Red Cell Distribution Width 12.4 % (11.0-16.0); White Blood Count 15.8 X10*3/uL (4.8-10.8)
[2021-01-06] MEDS: Metoprolol Tartrate 25 MG TABLET PO ×3 (14:13→21:16)
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
[2021-01-06] MEDS: 0.9 % Sodium Chloride Flush 3 ML SYRINGE IVFLUSH (15:55)
[2021-01-06] MEDS: Enoxaparin Sodium 40 MG/0.4 ML SYRINGE SUBCUT (15:55)
[2021-01-06] MEDS: Doxycycline Hyclate 100 MG in 0.9 % Sodium Chloride 250 ML 166.67 MG IV (15:55)
[2021-01-06 16:09] LABS: Glucose, Whole Blood 161 mg/dL (60-115)
--- NOTE | 2021-01-06 16:20 | PM.CNCAR ---
History of Present Illness History of Present Illness Date of Service: 01/06/21 Requesting physician: Yoana Murguia Chief complaint: AMS, NEW ONSET AFIB W RVR Narrative: 65-year-old female who presented with change in mental status. It appears her friend who knows her from [facility] try to contact her few times and could not reach out to her for 2 days. They eventually called [employer] and went to her home and she was found down or on the floor. She does not remember how she got there. She said she went to bed and then was found by cups. It appears she was down for some time. She was also quite unkempt. She has been noticed to have rhabdomyolysis. She is currently mildly confused. She is saying her left hand does not feel normal. She is left handed. She denies any chest discomfort shortness of breath. No history of stroke. Her left leg was weak as per the friend and she we used a brace for the left leg in the past. She has been noticed to have atrial fibrillation with rapid ventricular response. We have been asked to help with management. She is denying any palpitations right now. [facility] Past Medical History Medical History Diabetes Social History Social History Household Members: None Housing: House Do you presently have visiting nurse or other home services: No Alcohol intake: unknown Smoking Status: Smoker, status unknown Use of substances other than those prescribed or required for medical reasons: No Have you been hit, kicked, punched, or otherwise hurt by someone within the past year? If so, by whom?: No Do you feel safe in your current relationship?: No Current Relationship Is there a partner from a previous relationship who is making you feel unsafe now?: No Are you made to feel afraid or neglected: No Advance Directives: No Do you have thoughts of harming others: None Do you have a plan to hurt others: No Plan Recently lost weight without trying: No Meds Allergies Allergy/AdvReac Type Severity Reaction Status Date / Time amoxicillin Allergy Unknown Unknown Verified 01/06/21 15:44 Active Medications: Current Medications Generic Name Dose Route Start Last Admin Trade Name Freq PRN Reason Stop Dose Admin Acetaminophen 650 mg 01/06/21 14:45 Acetaminophen 325 Mg Tablet PO Q6H PRN Pain, Mild (Pain Scale 1-3) Apixaban 5 mg 01/07/21 09:00 Apixaban 5 Mg Tablet PO BID [facility] Ceftriaxone Sodium 1 gm/ 50 mls @ 100 mls/hr 01/07/21 06:00 Sodium Chloride IV Q24H AMAURY Doxycycline Hyclate 100 mg/ 250 mls @ 166.67 mls/hr 01/06/21 15:00 01/06/21 15:55 Sodium Chloride IV 166.67 mls/hr Q12H AMAURY Administration Ketorolac Tromethamine 15 mg 01/06/21 14:45 Ketorolac Tromethamine 30 Mg/Ml Vial IVPUSH 01/11/21 14:44 Q6H PRN Pain, Moderate (Pain Scale 4-6 Metoprolol Tartrate 25 mg 01/06/21 13:00 01/06/21 14:13 Metoprolol Tartrate 25 Mg Tablet PO 25 mg QID [facility] Administration Protocol Ondansetron HCl 4 mg 01/06/21 14:45 Ondansetron Hcl 4 Mg/2 Ml Vial IVPUSH Q8H PRN Nausea and Vomiting Sodium Chloride 3 ml 01/06/21 16:00 01/06/21 15:55 0.9 % Sodium Chloride Flush 3 Ml Syringe IVFLUSH 3 ml QSHIFT AMAURY Administration Physical Exam Vital Signs: Vital Signs: Last Vital Signs Temp 96.8 F 01/06/21 15:03 Pulse 96 01/06/21 15:03 Resp 22 H 01/06/21 15:03 BP 140/94 H 01/06/21 15:03 Pulse Ox 97 01/06/21 15:03 Body Mass Index 31.8 GENERAL APPEARANCE: in no acute distress. HEENT: unremarkable. HEAD: normocephalic, atraumatic. NECK/THYROID: no carotid bruit, no jugular venous distention. SKIN: Abrasion on left arm. HEART: no murmurs, irregular rate and rhythm, S1, S2 normal. LUNGS: clear to auscultation bilaterally. ABDOMEN: normal, bowel sounds present, soft, nontender, nondistended. EXTREMITIES: no clubbing, cyanosis, or edema. PERIPHERAL PULSES: equal. NEUROLOGIC: Mildly weak in left arm. Otherwise awake and alert and following simple commands. PSYCH: mood/affect full range. Results Labs and Meds Result diagrams: 01/06/21 10:04 01/06/21 08:53 Lab results: Laboratory Results - last 24 hr 01/05/21 01/06/21 01/06/21 23:51 01:58 01:59 WBC RBC Hgb Hct MCV MCH MCHC RDW Plt Count MPV Immature Gran % (Auto) Neut % (Auto) Lymph % (Auto) [place] % (Auto) Eos % (Auto) Baso % (Auto) Lymph # (Auto) [place] # (Auto) Eos # (Auto) Baso # (Auto) Abs Immat Gran (auto) Absolute Neuts (auto) Absolute Nucleated RBC Nucleated RBC % (auto) PT INR VBG pH Cancelled VBG pCO2 Cancelled VBG pO2 Cancelled VBG HCO3 Cancelled VBG O2 Saturation Cancelled VBG Base Excess Cancelled Sodium Potassium Chloride Carbon Dioxide Anion Gap BUN Creatinine Estim Creat Clear Calc Estimated GFR POC Glucose 159 H Random Glucose Lactic Acid 2.4 H* Lactic Acid Fup @ 2Hr Calcium Magnesium Total Bilirubin AST ALT Alkaline Phosphatase Ammonia Total Creatine Kinase Troponin I High Sens Total Protein Albumin Lipase Urine Color Urine Appearance Urine pH Ur Specific [place] Urine Protein Urine Glucose (UA) Urine Ketones Urine Blood Urine Nitrite Ur Leukocyte Esterase Urine RBC Urine WBC Ur Squamous Epith Cells Urine Bacteria Urine Test Urine Opiates Screen Ur Barbiturates Screen Ur Phencyclidine Scrn Ur Amphetamines Screen U Benzodiazepines Scrn Urine Cocaine Screen U Marijuana (THC) Screen Ethyl Alcohol Coronavirus (PCR) Influenza Type A (PCR) Influenza Type B (PCR) RSV RNA Qual (PCR) 01/06/21 01/06/21 01/06/21 01:59 02:00 02:00 WBC 17.0 H RBC 4.46 Hgb 14.4 Hct 41.1 MCV 92.2 MCH 32.3 MCHC 35.0 RDW 12.3 Plt Count 182 MPV 10.1 Immature Gran % (Auto) 0.5 H Neut % (Auto) 85.4 H Lymph % (Auto) 6.7 L [place]atte % (Auto) 7.0 Eos % (Auto) 0.2 Baso % (Auto) 0.2 Lymph # (Auto) 1.1 L [place] # (Auto) 1.2 Eos # (Auto) 0.0 Baso # (Auto) 0.0 Abs Immat Gran (auto) 0.09 H Absolute Neuts (auto) 14.5 H Absolute Nucleated RBC 0.000 Nucleated RBC % (auto) 0.0 PT INR VBG pH VBG pCO2 VBG pO2 VBG HCO3 VBG O2 Saturation VBG Base Excess Sodium 139 Potassium 4.2 Chloride 105 Carbon Dioxide 18 L Anion Gap 20 BUN 29 H Creatinine 0.97 Estim Creat Clear Calc 64.2 Estimated GFR 57 POC Glucose Random Glucose 172 H Lactic Acid Lactic Acid Fup @ 2Hr Calcium 8.9 Magnesium 1.7 Total Bilirubin 1.8 H AST 35 H ALT 22 Alkaline Phosphatase 63 Ammonia 30 Total Creatine Kinase Troponin I High Sens Total Protein 7.1 Albumin 4.3 Lipase 44 Urine Color Urine Appearance Urine pH Ur Specific [place] Urine Protein Urine Glucose (UA) Urine Ketones Urine Blood Urine Nitrite Ur Leukocyte Esterase Urine RBC Urine WBC Ur Squamous Epith Cells Urine Bacteria Urine Test Urine Opiates Screen Ur Barbiturates Screen Ur Phencyclidine Scrn Ur Amphetamines Screen U Benzodiazepines Scrn Urine Cocaine Screen U Marijuana (THC) Screen Ethyl Alcohol Coronavirus (PCR) Influenza Type A (PCR) Influenza Type B (PCR) RSV RNA Qual (PCR) 01/06/21 01/06/21 01/06/21 02:00 02:00 02:00 WBC RBC Hgb Hct MCV MCH MCHC RDW Plt Count MPV Immature Gran % (Auto) Neut % (Auto) Lymph % (Auto) [place] % (Auto) Eos % (Auto) Baso % (Auto) Lymph # (Auto) [place] # (Auto) Eos # (Auto) Baso # (Auto) Abs Immat Gran (auto) Absolute Neuts (auto) Absolute Nucleated RBC Nucleated RBC % (auto) PT INR VBG pH VBG pCO2 VBG pO2 VBG HCO3 VBG O2 Saturation VBG Base Excess Sodium Potassium Chloride Carbon Dioxide Anion Gap BUN Creatinine Estim Creat Clear Calc Estimated GFR POC Glucose Random Glucose Lactic Acid Lactic Acid Fup @ 2Hr Calcium Magnesium Total Bilirubin AST ALT Alkaline Phosphatase Ammonia Total Creatine Kinase 770 H Troponin I High Sens 14.5 Total Protein Albumin Lipase Urine Color Urine Appearance Urine pH Ur Specific [place] Urine Protein Urine Glucose (UA) Urine Ketones Urine Blood Urine Nitrite Ur Leukocyte Esterase Urine RBC Urine WBC Ur Squamous Epith Cells Urine Bacteria Urine Test Urine Opiates Screen Ur Barbiturates Screen Ur Phencyclidine Scrn Ur Amphetamines Screen U Benzodiazepines Scrn Urine Cocaine Screen U Marijuana (THC) Screen Ethyl Alcohol < 10 Coronavirus (PCR) Influenza Type A (PCR) Influenza Type B (PCR) RSV RNA Qual (PCR) 01/06/21 01/06/21 01/06/21 02:07 02:10 02:10 WBC RBC Hgb Hct MCV MCH MCHC RDW Plt Count MPV Immature Gran % (Auto) Neut % (Auto) Lymph % (Auto) [place]atte % (Auto) Eos % (Auto) Baso % (Auto) Lymph # (Auto) [place] # (Auto) Eos # (Auto) Baso # (Auto) Abs Immat Gran (auto) Absolute Neuts (auto) Absolute Nucleated RBC Nucleated RBC % (auto) PT INR VBG pH 7.37 VBG pCO2 33 VBG pO2 59 VBG HCO3 19 L VBG O2 Saturation 87.0 VBG Base Excess -4.6 Sodium Potassium Chloride Carbon Dioxide Anion Gap BUN Creatinine Estim Creat Clear Calc Estimated GFR POC Glucose Random Glucose Lactic Acid Lactic Acid Fup @ 2Hr Calcium Magnesium Total Bilirubin AST ALT Alkaline Phosphatase Ammonia Total Creatine Kinase Troponin I High Sens Total Protein Albumin Lipase Urine Color DARK YELLOW Urine Appearance HAZY Urine pH 5.5 Ur Specific [place] >= 1.030 H Urine Protein 2+ H Urine Glucose (UA) NEG Urine Ketones 40 Urine Blood TRACE Urine Nitrite NEG Ur Leukocyte Esterase NEG Urine RBC 0 Urine WBC 0-2 Ur Squamous Epith Cells 4+ Urine Bacteria 3+ Urine Test NEGATIVE Urine Opiates Screen Ur Barbiturates Screen Ur Phencyclidine Scrn Ur Amphetamines Screen U Benzodiazepines Scrn Urine Cocaine Screen U Marijuana (THC) Screen Ethyl Alcohol Coronavirus (PCR) Influenza Type A (PCR) Influenza Type B (PCR) RSV RNA Qual (PCR) 01/06/21 01/06/21 01/06/21 02:10 02:11 02:11 WBC RBC Hgb Hct MCV MCH MCHC RDW Plt Count MPV Immature Gran % (Auto) Neut % (Auto) Lymph % (Auto) [place] % (Auto) Eos % (Auto) Baso % (Auto) Lymph # (Auto) [place] # (Auto) Eos # (Auto) Baso # (Auto) Abs Immat Gran (auto) Absolute Neuts (auto) Absolute Nucleated RBC Nucleated RBC % (auto) PT 14.5 H INR 1.2 H VBG pH VBG pCO2 VBG pO2 VBG HCO3 VBG O2 Saturation VBG Base Excess Sodium Potassium Chloride Carbon Dioxide Anion Gap BUN Creatinine Estim Creat Clear Calc Estimated GFR POC Glucose Random Glucose Lactic Acid Lactic Acid Fup @ 2Hr Calcium Magnesium Total Bilirubin AST ALT Alkaline Phosphatase Ammonia Total Creatine Kinase Troponin I High Sens Total Protein Albumin Lipase Urine Color Urine Appearance Urine pH Ur Specific [place] Urine Protein Urine Glucose (UA) Urine Ketones Urine Blood Urine Nitrite Ur Leukocyte Esterase Urine RBC Urine WBC Ur Squamous Epith Cells Urine Bacteria Urine Test Urine Opiates Screen Not Detected Ur Barbiturates Screen Not Detected Ur Phencyclidine Scrn Not Detected Ur Amphetamines Screen Not Detected U Benzodiazepines Scrn Not Detected Urine Cocaine Screen Not Detected U Marijuana (THC) Screen Not Detected Ethyl Alcohol Coronavirus (PCR) NEGATIVE Influenza Type A (PCR) NEGATIVE Influenza Type B (PCR) NEGATIVE RSV RNA Qual (PCR) NEGATIVE 01/06/21 01/06/21 01/06/21 05:58 08:53 08:53 WBC RBC Hgb Hct MCV MCH MCHC RDW Plt Count MPV Immature Gran % (Auto) Neut % (Auto) Lymph % (Auto) [place] % (Auto) Eos % (Auto) Baso % (Auto) Lymph # (Auto) [place] # (Auto) Eos # (Auto) Baso # (Auto) Abs Immat Gran (auto) Absolute Neuts (auto) Absolute Nucleated RBC Nucleated RBC % (auto) PT INR VBG pH VBG pCO2 VBG pO2 VBG HCO3 VBG O2 Saturation VBG Base Excess Sodium 140 Potassium 4.7 Chloride 108 Carbon Dioxide 19 L Anion Gap 18 BUN 25 H Creatinine 0.82 Estim Creat Clear Calc 76.0 Estimated GFR > 60 POC Glucose Random Glucose 156 H Lactic Acid Lactic Acid Fup @ 2Hr 1.6 Calcium 8.2 L D Magnesium Total Bilirubin 1.5 H AST 44 H ALT 23 Alkaline Phosphatase 57 Ammonia Total Creatine Kinase Troponin I High Sens 12.0 Total Protein 6.5 Albumin 3.7 Lipase Urine Color Urine Appearance Urine pH Ur Specific [place] Urine Protein Urine Glucose (UA) Urine Ketones Urine Blood Urine Nitrite Ur Leukocyte Esterase Urine RBC Urine WBC Ur Squamous Epith Cells Urine Bacteria Urine Test Urine Opiates Screen Ur Barbiturates Screen Ur Phencyclidine Scrn Ur Amphetamines Screen U Benzodiazepines Scrn Urine Cocaine Screen U Marijuana (THC) Screen Ethyl Alcohol Coronavirus (PCR) Influenza Type A (PCR) Influenza Type B (PCR) RSV RNA Qual (PCR) 01/06/21 01/06/21 10:04 16:02 WBC 15.8 H RBC 4.08 L Hgb 13.1 Hct 37.9 MCV 92.9 MCH 32.1 MCHC 34.6 RDW 12.4 Plt Count 162 MPV 9.8 Immature Gran % (Auto) 0.4 Neut % (Auto) 80.9 H Lymph % (Auto) 9.5 L [place] % (Auto) 8.4 Eos % (Auto) 0.6 Baso % (Auto) 0.2 Lymph # (Auto) 1.5 Platte # (Auto) 1.3 H Eos # (Auto) 0.1 Baso # (Auto) 0.0 Abs Immat Gran (auto) 0.06 H Absolute Neuts (auto) 12.8 H Absolute Nucleated RBC 0.000 Nucleated RBC % (auto) 0.0 PT INR VBG pH VBG pCO2 VBG pO2 VBG HCO3 VBG O2 Saturation VBG Base Excess Sodium Potassium Chloride Carbon Dioxide Anion Gap BUN Creatinine Estim Creat Clear Calc Estimated GFR POC Glucose 161 H Random Glucose Lactic Acid Lactic Acid Fup @ 2Hr Calcium Magnesium Total Bilirubin AST ALT Alkaline Phosphatase Ammonia Total Creatine Kinase Troponin I High Sens Total Protein Albumin Lipase Urine Color Urine Appearance Urine pH Ur Specific [place] Urine Protein Urine Glucose (UA) Urine Ketones Urine Blood Urine Nitrite Ur Leukocyte Esterase Urine RBC Urine WBC Ur Squamous Epith Cells Urine Bacteria Urine Test Urine Opiates Screen Ur Barbiturates Screen Ur Phencyclidine Scrn Ur Amphetamines Screen U Benzodiazepines Scrn Urine Cocaine Screen U Marijuana (THC) Screen Ethyl Alcohol Coronavirus (PCR) Influenza Type A (PCR) Influenza Type B (PCR) RSV RNA Qual (PCR) Imaging Radiologist's impression: Impressions Chest X-Ray 01/06/21 00:01 IMPRESSION: No evidence for acute disease. Abdomen/Pelvis CT 01/06/21 03:08 IMPRESSION: 1. No evidence of acute abnormality within the chest, abdomen or pelvis. 2. Pulmonary nodules as detailed above, the largest of which measures 0.5 cm in the left upper lobe. Resolution is limited by patient motion. According to the UPDATED 2017 Fleischner Society recommendations, the advised follow-up imaging for solid nodules < 6 mm is: LOW RISK PATIENT: No routine follow-up. HIGH RISK PATIENT: Optional CT at 12 months. 3. Other chronic and nonacute findings as above. Cervical Spine CT 01/06/21 03:08 IMPRESSION: 1. No evidence of acute intracranial abnormality. 2. Degenerative changes of the cervical spine without CT evidence of acute injury. Chest CT 01/06/21 03:08 IMPRESSION: 1. No evidence of acute abnormality within the chest, abdomen or pelvis. 2. Pulmonary nodules as detailed above, the largest of which measures 0.5 cm in the left upper lobe. Resolution is limited by patient motion. According to the UPDATED 2017 Fleischner Society recommendations, the advised follow-up imaging for solid nodules < 6 mm is: LOW RISK PATIENT: No routine follow-up. HIGH RISK PATIENT: Optional CT at 12 months. 3. Other chronic and nonacute findings as above. Head CT 01/06/21 03:08 IMPRESSION: 1. No evidence of acute intracranial abnormality. 2. Degenerative changes of the cervical spine without CT evidence of acute injury. Knee X-Ray 01/06/21 03:10 IMPRESSION: Degenerative changes without radiographic evidence of acute fracture or subluxation. Hand X-Ray 01/06/21 08:40 IMPRESSION: No fracture or dislocation. Mild degenerative changes at the radiocarpal joint and ulnar minus variance. Assessment and Plan (1) Sepsis: Qualifiers: Sepsis acute organ dysfunction status: with acute organ dysfunction Sepsis type: sepsis due to unspecified organism Severe sepsis acute organ dysfunction type: unspecified Severe sepsis shock status: without septic shock Qualified Code(s): A41.9 - Sepsis, unspecified organism; R65.20 - Severe sepsis without septic shock Status: Acute (2) Toxic metabolic encephalopathy: Status: Acute (3) Atrial fibrillation with RVR: Status: Acute Pleasant 65-year-old female with new onset atrial fibrillation with rapid ventricular response. This is in the setting of encephalopathy due to sepsis due to pneumonia. She is on antibiotics. She has mild rhabdomyolysis. Clinically not in heart failure. Agree with starting Eliquis and metoprolol. CT head has ruled out head bleed. Will check echocardiogram to assess LV for any structural issues. Thank you for allowing me to participate in the care of your patient. Please feel free to contact me if you have any questions.
[2021-01-06 20:14] LABS: Glucose, Whole Blood 234 mg/dL (60-115)
[2021-01-07] VITALS (12 sets, daily range): BP systolic 96–138; BP diastolic 63–87; PULSE 80–117; RESP 14–18; TEMP 36.1–36.8; O2SAT 97–99
--- NOTE | 2021-01-07 | EEG_ITS ---
This is a 16-channel EEG with an EKG lead. The patient is reported awake during the tracing. Background EEG rhythm is mostly low amplitude fast with no obvious asymmetry or paroxysmal tendency. Photic stimulation does not produce any significant abnormality. Hyperventilation is not performed. Cardiac lead does not reveal any significant abnormality. No significant abnormality was noted. IMPRESSION: Unremarkable EEG. MD CONCHIS Harris/MARIO / [id number]
[2021-01-07] MEDS: Doxycycline Hyclate 100 MG in 0.9 % Sodium Chloride 250 ML 166.67 MG IV (03:02)
[2021-01-07] MEDS: cefTRIAXone sodium 1 GM in 0.9 % Sodium Chloride 50 ML IV (05:06)
[2021-01-07 07:12] LABS: Basophils Absolute Auto 0.1 X10*3/uL (0.0-0.2); Basophils Percent Auto 0.5 % (0-2); Eosinophils Absolute Auto 0.5 X10*3/uL (0.0-0.4); Eosinophils Percent Auto 5.2 % (0-4); Hematocrit 36.8 % (37-47); Hemoglobin 12.7 g/dl (12.0-16.0); Imm Gran Abs Auto 0.04 X10*3/uL (0.00-0.03); Imm Gran Pct Auto 0.4 % (0.0-0.4); Lymphocytes Absolute Auto 1.7 X10*3/uL (1.2-4.9); Lymphocytes Percent Auto 16.7 % (20-40); MANUAL DIFF FLAG NO; Mean Corpuscular HGB Conc 34.5 g/dl (31.0-35.0); Mean Corpuscular Hemoglobin 32.8 pg (27.0-33.0); Mean Corpuscular Volume 95.1 fL (80-98); Mean Platelet Volume 10.7 fL (9.4-12.3); Neutrophils Percent Auto 67.2 % (45-73); Platelet Count 163 X10*3/uL (160-400); Red Blood Count 3.87 X10*6/uL (4.20-5.50); Red Cell Distribution Width 12.5 % (11.0-16.0); White Blood Count 10.3 X10*3/uL (4.8-10.8)
[2021-01-07 07:18] LABS: Anion Gap 17 (12-20); Blood Urea Nitrogen 22 mg/dL (9-16); Carbon Dioxide 18 mmol/L (22-29); Chloride 108 mmol/L (96-108); Creatinine Clr Calc Pharmacy 76.9; Estimated Glomerular Filt Rate > 60; Glucose Random 124 mg/dL (60-115); Potassium 3.7 mmol/L (3.3-5.1); Sodium 139 mmol/L (135-145)
[2021-01-07 07:18] LABS: Glucose, Whole Blood 112 mg/dL (60-115)
--- NOTE | 2021-01-07 08:50 | MHC.CM.PN ---
Patient is here with AMS; CM spoke with first/only listed contact- Sister/Sonia @ [phone]. Patient lives alone in a house and was not using any DME to assist with mobility (although Sonia indicated that she felt she should have been). Sonia is unsure if Patient has a HCP. PCP is from [place]. Sonia explains that she is Patient's only family in the area (also has a Sister/Rashida in [place] @ [phone]) and Patient's rastafarian also assists at times. The goal for dc is home with new referral to [facility] @ [facility] pending PT eval. CM has initiated and will follow for dc planning. IMM addressed with Sonia and will be mailed certified letter to her (original) and a copy will be placed on the chart.
--- NOTE | 2021-01-07 09:00 | MHC.CM.PN ---
PT is recommending STR; CM will follow.
[2021-01-07] MEDS: Apixaban 5 MG TABLET PO ×2 (10:05→20:45)
[2021-01-07] MEDS: Metoprolol Tartrate 25 MG TABLET PO ×2 (10:05→11:51)
--- NOTE | 2021-01-07 10:32 | P.CNNE_ITS ---
History of Present Illness Data of Consult Service Date: 01/07/21 Primary Care Provider: Unknown Physician 65 years old woman with underlying history of hypertension, diabetes, peripheral vascular disease and cellulitis to was found on the floor of her home apparently unresponsive for unknown amount of time covered with feces. She could not provide any explanation or details. She had significant difficulty hearing and either her hearing aids were not working or not appropriate and communication with her was difficult. Review of Systems Review of Systems: Difficult to obtain questions about review of system but apparently no recent cold or flu-like illness. [facility] Past Medical History Medical History Diabetes Social History Social History Household Members: None Housing: House Alcohol intake: unknown Smoking Status: Smoker, status unknown service: No Current occupational status: retired Meds Allergies Allergy/AdvReac Type Severity Reaction Status Date / Time amoxicillin Allergy Unknown Unknown Verified 01/06/21 15:44 Active Medications: Current Medications Generic Name Dose Route Start Last Admin Trade Name Freq PRN Reason Stop Dose Admin Acetaminophen 650 mg 01/06/21 14:45 Acetaminophen 325 Mg Tablet PO Q6H PRN Pain, Mild (Pain Scale 1-3) Apixaban 5 mg 01/07/21 09:00 01/07/21 10:05 Apixaban 5 Mg Tablet PO 5 mg BID AMAURY Administration Artificial Tears 2 drop 01/06/21 17:35 Artificial Tears 15 Ml Drops EYE-BOTH Q4H PRN Dry Eyes Ceftriaxone Sodium 1 gm/ 50 mls @ 100 mls/hr 01/07/21 06:00 01/07/21 05:49 Sodium Chloride IV Infused Q24H AMAURY Infusion Doxycycline Hyclate 100 mg/ 250 mls @ 166.67 mls/hr 01/06/21 15:00 01/07/21 04:50 Sodium Chloride IV Infused Q12H AMAURY Infusion Insulin Human Lispro 0 unit 01/07/21 07:30 01/07/21 07:36 Insulin Lispro 100 Unit/Ml 3 Ml Vial SUBCUT Not Given QIDACHS [facility] Protocol Ketorolac Tromethamine 15 mg 01/06/21 14:45 Ketorolac Tromethamine 30 Mg/Ml Vial IVPUSH 01/11/21 14:44 Q6H PRN Pain, Moderate (Pain Scale 4-6 Metoprolol Tartrate 25 mg 01/06/21 13:00 01/07/21 10:05 Metoprolol Tartrate 25 Mg Tablet PO 25 mg QID [facility] Administration Protocol Ondansetron HCl 4 mg 01/06/21 14:45 Ondansetron Hcl 4 Mg/2 Ml Vial IVPUSH Q8H PRN Nausea and Vomiting Sodium Chloride 3 ml 01/06/21 16:00 01/07/21 09:29 0.9 % Sodium Chloride Flush 3 Ml Syringe IVFLUSH Not Given QSHIFT [facility] Physical Exam Vital Signs: Vital Signs: Last Vital Signs Temp 97 F 01/07/21 07:45 Pulse 117 H 01/07/21 10:05 Resp 18 01/07/21 07:45 BP 137/87 01/07/21 10:05 Pulse Ox 99 01/07/21 08:19 Body Mass Index 31.8 She was alert and awake asking appropriate questions but could not hear conversation. She was following commands. Face was symmetrical. Pupils were e qual and reactive to light. Reflexes were absent. Plantars were flat. There was significant leg edema. There was no obvious focal weakness. Results Labs CBC & Chem 7: 01/07/21 05:34 01/07/21 05:34 Labs: Short CBC 01/07/21 Range/Units 05:34 WBC 10.3 (4.8-10.8) X10*3/uL Hgb 12.7 (12.0-16.0) g/dl Hct 36.8 L (37-47) % Plt Count 163 (160-400) X10*3/uL [facility] 01/07/21 05:34 Sodium 139 Potassium 3.7 D Chloride 108 Carbon Dioxide 18 L BUN 22 H Creatinine 0.81 Calcium 8.0 L Her noncontrast head CT did not reveal any acute pathology. Mild cerebral atrophy and mild microvascular ischemic changes were noted. EKG revealed atrial fibrillation, which apparently was new. Microbiology Microbiology Results: Microbiology 01/06/21 01:58 Blood - Venous Blood Culture - Preliminary No growth after 24 hours. 01/06/21 01:58 Blood - Venous Blood Culture - Preliminary No growth after 24 hours. Assessment and Plan (1) Syncope and collapse determined by examination: Status: Acute 65 years old woman with underlying history of diabetes, hypertension, peripheral vascular disease and edema who was found unresponsive at home for unknown amount of time but the time seems to be not that long. Her CPK level was not too high. She was found in atrial fibrillation, which was new. Exact etiology was unclear and she might have a seizure. Recommendation is to obtain an electroencephalogram. She should be advised to not drive and avoid activities that could put her life in danger such as sitting alone and a soaking tub. As far as atrial fibrillation is concerned, long-term anticoagulation is recommended for stroke prophylaxis.
[2021-01-07 11:06] LABS: Glucose, Whole Blood 294 mg/dL (60-115)
[2021-01-07] MEDS: Insulin Lispro 100 UNIT/ML 3 ML VIAL SUBCUT (11:50)
[2021-01-07] MEDS: Azithromycin 500 MG in 0.9 % Sodium Chloride 250 ML 125 MG IV (12:23)
--- NOTE | 2021-01-07 12:23 | MHC.CM.PN ---
PT is recommending STR.Patient's first choice SNF/[facility] is not contracted with Patient's insurance.CM spoke with Patient's Sister Sonia and per that conversation, CM has made multiple area SNF referrals, trying to determine who has bed availability AND [facility]. CM will follow.(PATIENT/FAMILY DO NOT WANT [facility].
[2021-01-07] MEDS: Metoprolol Tartrate 25 MG TABLET 50 MG PO ×3 (12:24→19:54)
[2021-01-07 12:34] LABS: Folate 19.6 ng/mL (> or = 4.0); Vitamin B12 304 pg/mL (200-900)
--- NOTE | 2021-01-07 12:56 | CA_ITS ---
Transthoracic Echocardiogram Patient (Last, First, Middle): Willy Kingston L Gender: Female Date of : 1955 Age: 65 Procedure Date: 01/07/2021 Procedure Type: Transthoracic Echocardiogram Location: [facility] [place] Height: 167.64 cm Weight: 89.36 kg BSA: 1.99 m2 Heart Rate: bpm BP: 118 / 58 mmHg Operations Systems Specialist: Referring MD: Yoana Murguia MD Symptoms: New onset Atrial fibrillation Study Quality: Technically Difficult ECG Rhythm: Atrial Fibrillation Conclusions: - Normal left ventricular size and systolic function. - Normal right ventricular cavity size and systolic function. - The left atrium is severely dilated. - There is evidence of a patent foramen ovale with right to left shunting. - There is mild to moderate mitral valve regurgitation. Findings Left Ventricle Normal left ventricular size and systolic function. There is moderately increased left ventricular wall thickness. The visually estimated ejection fraction is between 55-60%. Regional wall motion abnormalities can not be excluded due to suboptimal endocardial definition. Diastolic function is indeterminate on the basis of available data. Right Ventricle Normal right ventricular cavity size and systolic function. Atria The left atrium is severely dilated. There is an interatrial septal aneurysm seen bowing to the right. Patent foramen ovale detected using by color Doppler. There is evidence of a patent foramen ovale with right to left shunting. Aortic Valve There is a normal trileaflet aortic valve. There is mild calcification of the aortic valve. There is mild thickening of the aortic valve. There is no aortic valve stenosis. There is trace (trivial) aortic valve regurgitation. Mitral Valve There is severe mitral annular calcification. There is mild to moderate mitral valve regurgitation. There is no mitral valve stenosis. Pulmonic Valve Normal pulmonic valve structure and function. There is trace pulmonic valve regurgitation. Tricuspid Valve Normal tricuspid valve structure and function. There is trace tricuspid valve regurgitation. Normal right atrial pressure. There is no evidence of pulmonary hypertension. Great Vessels There is mild dilatation of the ascending aorta. The visualized portions of the pulmonary artery and branches are normal. Venous The inferior vena cava is normal in size and collapses greater than 50% with inspiration. Pericardium/Pleural There is no evidence of pericardial effusion. Prior Study Comparison No prior study available for comparison. Recommendations, Care & Conclusions Recommend contrast in the future to improve endocardial definition. Measurements 2D Linear Measurements IVSd: 1.31 0.6-0.9/0.6-1.0 cm LVIDd: 4.04 3.9-5.3/4.2-5.9 cm LVIDd Index: 2.03 2.4-3.2/2.2-3.1 cm/m2 LVIDs: 2.61 2.0-3.6 cm LVPWd: 1.28 0.7-1.1 cm Ao Root: 2.80 2.1-3.5 cm LA Diam: 4.80 2.7-3.8/3.0-4.0 cm LAIDs Index: 2.41 1.5-2.3 cm/m2 LV Mass: 234.51 67-162/88-224 g LV Mass Index: 117.85 43-95/49-115 g/m2 LVOT Diam: 2.20 3.0+(-)1.3 cm 2D Systolic Function EF 4C: 58.10 >55% EF 2C: 54.00 >55% EF BiP: 55.70 >55% Mitral Valve MV VTI: 0.30 MV Pk Corey: 1.43 MV Mn Corey: 0.72 MV Pk Grad: 8.00 MV Mn Grad: 3.00 MV Pk E: 1.50 MV Decel Time: 211.00 E'Lateral: 9.57 E'Medial: 6.67 E/E' Med: 22.50 E/E' Lat: 15.70 PHT: 62.00 MVA PHT: 3.55 MVA Continuity: 2.23 Decel Thurston: 7.09 Aortic Valve AoV Pk Corey: 1.51 AoV Mn Corey: 0.99 AoV VTI: 0.29 AoV Pk Grad: 9.00 Aov Mn Grad: 5.00 ZOYA Cont.VTI: 2.32 AI Pk Corey: 3.90 AI Thurston: 3.46 LVOT LVOT Pk Corey: 0.92 LVOT Mn Corey: 0.59 LVOT VTI: 0.18 LVOT Pk Grad: 3.00 LVOT Mn Grad: 2.00 LVOT Diam: 2.20 LVOT Area: 3.80 Diastolic Function MV Pk E: 1.50 E'Medial: 6.67 E/E' Med: 22.50 E' Laterial: 9.57 E/E' Lat: 15.70 Tricuspid Valve TR Pk Corey: 2.45 TR Pk Grad: 24.00 RA Press: 3.00 RVSP: 27.00 Great Vessels Aorta Ao Root-2D: 2.80 2.0-3.7 cm Ao Asc: 4.00 2.1-3.4 cm Pulmonary Valve PV Pk Corey: 0.83 Peak PV Grad: 3.00 Updated in Other Vendor System with Status of Final Pelon Moses MD electronically signed on 01/07/2021 8:55:55 PM with status of Final
--- NOTE | 2021-01-07 14:07 | P.PNIM_ITS ---
Subjective Subjective Date of Service: 01/07/21 Review of Systems the patient was seen and evaluated this morning Sitting in the chair, anxious and confused, security in the room as well as the patient refusing to sit and hold nurses orders Was able to count her down, she is much more confused than yesterday, and where her surroundings Denies any fever, chills or shortness of breath No reported other overnight events. Systemic review: No fever, chills or weakness No chest pain, palpitation No shortness of breath or coughing No abdominal pain, nausea or vomiting No urinary symptoms No any rash or wounds Physical Exam Vital Signs: Vital Signs: Last Vital Signs Temp 97.1 F 01/07/21 11:19 Pulse 96 01/07/21 12:24 Resp 18 01/07/21 11:19 BP 123/78 01/07/21 12:24 Pulse Ox 97 01/07/21 11:19 Body Mass Index 31.8 Const: Other: Constitutional : Alert, with significant confused, not in distress Neck : Normal inspection, Supple Cardiovascular : RRR, S1 S2, trace lower extremity edema Respiratory : Fair bilateral air entry, bilateral fine basal crackles, wheezes or rhonchi Gastrointestinal: soft, lax, Normal bowel sounds, Non tender Skin : Warm/Dry, multiple areas of contusion. Neurological : Alert & disoriented, no neck rigidity or meningeal signs, No focal deficit Objective Data Current Medications Generic Name Dose Route Start Last Admin Trade Name Freq PRN Reason Stop Dose Admin Acetaminophen 650 mg 01/06/21 14:45 Acetaminophen 325 Mg Tablet PO Q6H PRN Pain, Mild (Pain Scale 1-3) Apixaban 5 mg 01/07/21 09:00 01/07/21 10:05 Apixaban 5 Mg Tablet PO 5 mg BID AMAURY Administration Artificial Tears 2 drop 01/06/21 17:35 Artificial Tears 15 Ml Drops EYE-BOTH Q4H PRN Dry Eyes Ceftriaxone Sodium 1 gm/ 50 mls @ 100 mls/hr 01/07/21 06:00 01/07/21 05:49 Sodium Chloride IV Infused Q24H [facility] Infusion Azithromycin 500 mg/ Sodium 250 mls @ 125 mls/hr 01/07/21 11:15 01/07/21 12:23 Chloride IV 125 mls/hr Q24H [facility] Administration Insulin Human Lispro 0 unit 01/07/21 07:30 01/07/21 11:50 Insulin Lispro 100 Unit/Ml 3 Ml Vial SUBCUT 6 unit QIDACHS [facility] Administration Protocol Ketorolac Tromethamine 15 mg 01/06/21 14:45 Ketorolac Tromethamine 30 Mg/Ml Vial IVPUSH 01/11/21 14:44 Q6H PRN Pain, Moderate (Pain Scale 4-6 Metoprolol Tartrate 50 mg 01/07/21 13:00 01/07/21 12:24 Metoprolol Tartrate 25 Mg Tablet PO 50 mg QID [facility] Administration Protocol Ondansetron HCl 4 mg 01/06/21 14:45 Ondansetron Hcl 4 Mg/2 Ml Vial IVPUSH Q8H PRN Nausea and Vomiting Sodium Chloride 3 ml 01/06/21 16:00 01/07/21 09:29 0.9 % Sodium Chloride Flush 3 Ml Syringe IVFLUSH Not Given QSHIFT [facility] Labs CBC & Chem 7: 01/07/21 05:34 01/07/21 05:34 Microbiology Microbiology Results: Microbiology 01/06/21 01:58 Blood - Venous Blood Culture - Preliminary No growth after 24 hours. 01/06/21 01:58 Blood - Venous Blood Culture - Preliminary No growth after 24 hours. Assessment and Plan (1) Atrial fibrillation with RVR: Status: Acute (2) Rhabdomyolysis: Status: Acute (3) Sepsis: Status: Acute (4) Pneumonia: Status: Acute (5) Toxic metabolic encephalopathy: Status: Acute Assessment and Plan: A 65 years old lady with no clear past medical history who presents from home as EMS found the patient unconscious on the floor after she has been disappeared for 3 days according to her neighbor's. Sepsis Likely secondary to pneumonia Possible aspiration, CT scan showing dependent areas changes Blood culture pending Continue IV antibiotics Toxic metabolic encephalopathy Unclear etiology, no meningeal signs of rash CT scan of the head negative for any acute findings DD X, seizures, head injury, infection, fall No history of alcohol intake per her sisters Neurology evaluation appreciated, to check EEG for possible seizure Reorientation, treat underlying infection New onset atrial fibrillation with RVR Patient over with diagnosis before Pending echo Increase metoprolol 50 q.i.d. for rate controlled Jt Vasc score 2, started on Eliquis Cardiology input appreciated Contusions Likely secondary to fall\possible seizure Local care, pain medication as needed DVT PPX Lovenox
--- NOTE | 2021-01-07 14:17 | PM.PNCARD ---
Subjective Subjective Date of Service: 01/07/21 Principal diagnosis: afib, AMS, PNA Interval history: Cardiology follow up for afib. Seen at 1330. Today she is noted to have confusion. She admits to being forgetful. Family member in room and states this isn't how she normally is . Pt is able to answer questions and denies chest pains, palpitations, dizziness, sob. Accuracy unclear. Review of Systems Review of Systems as above Yes Unobtainable due to mental condition Physical Exam Vital Signs: Last Vital Signs Temp 97.1 F 01/07/21 11:19 Pulse 96 01/07/21 12:24 Resp 18 01/07/21 11:19 BP 123/78 01/07/21 12:24 Pulse Ox 97 01/07/21 11:19 Body Mass Index 31.8 Const Other: pleasantly confused General: cooperative, no acute distress, alert and awake Neck Neck: Yes normal visual inspection and Yes no JVD Resp Effort & Inspection: normal respiratory effort, able to speak in complete sentences and not labored Auscultation: clear to auscultation bilaterally, no crackles, no rales, no rhonchi and no wheezes Cardio Palpation: normal PMI Rate: regular rate Rhythm: abnormal rhythm (irregularly irregular) Heart sounds: S1 normal heart sound present and S2 normal heart sound present Peripheral pulses: Peripheral pulses 2+ throughout GI Inspection: Yes normal to inspection Extrem Other: chronic nonpitting edema left lower leg Results Labs and Meds Result diagrams: 01/07/21 05:34 01/07/21 05:34 Lab results: Laboratory Results - last 24 hr 01/06/21 01/06/21 01/07/21 16:02 20:06 05:34 WBC 10.3 RBC 3.87 L Hgb 12.7 Hct 36.8 L MCV 95.1 MCH 32.8 MCHC 34.5 RDW 12.5 Plt Count 163 MPV 10.7 Immature Gran % (Auto) 0.4 Neut % (Auto) 67.2 Lymph % (Auto) 16.7 L [place] % (Auto) 10.0 Eos % (Auto) 5.2 H Baso % (Auto) 0.5 Lymph # (Auto) 1.7 [place] # (Auto) 1.0 Eos # (Auto) 0.5 H Baso # (Auto) 0.1 Abs Immat Gran (auto) 0.04 H Absolute Neuts (auto) 7.0 Absolute Nucleated RBC 0.000 Nucleated RBC % (auto) 0.0 Sodium Potassium Chloride Carbon Dioxide Anion Gap BUN Creatinine Estim Creat Clear Calc Estimated GFR POC Glucose 161 H 234 H Random Glucose Calcium Vitamin B12 Folate 01/07/21 01/07/21 01/07/21 05:34 05:34 07:12 WBC RBC Hgb Hct MCV MCH MCHC RDW Plt Count MPV Immature Gran % (Auto) Neut % (Auto) Lymph % (Auto) [place] % (Auto) Eos % (Auto) Baso % (Auto) Lymph # (Auto) [place] # (Auto) Eos # (Auto) Baso # (Auto) Abs Immat Gran (auto) Absolute Neuts (auto) Absolute Nucleated RBC Nucleated RBC % (auto) Sodium 139 Potassium 3.7 D Chloride 108 Carbon Dioxide 18 L Anion Gap 17 BUN 22 H Creatinine 0.81 Estim Creat Clear Calc 76.9 Estimated GFR > 60 POC Glucose 112 Random Glucose 124 H Calcium 8.0 L Vitamin B12 304 Folate 19.6 01/07/21 11:02 WBC RBC Hgb Hct MCV MCH MCHC RDW Plt Count MPV Immature Gran % (Auto) Neut % (Auto) Lymph % (Auto) [place] % (Auto) Eos % (Auto) Baso % (Auto) Lymph # (Auto) [place] # (Auto) Eos # (Auto) Baso # (Auto) Abs Immat Gran (auto) Absolute Neuts (auto) Absolute Nucleated RBC Nucleated RBC % (auto) Sodium Potassium Chloride Carbon Dioxide Anion Gap BUN Creatinine Estim Creat Clear Calc Estimated GFR POC Glucose 294 H Random Glucose Calcium Vitamin B12 Folate Progress Note: A&P Assessment and plan (1) Atrial fibrillation with RVR: Status: Acute Assessment and Plan: New finding of afib this admit. Rate controlled with Metoprolol. Tele shows afib rates 90-120. Denies palpitations or sob. CHADSVASc score of at least 2. On Eliquis for anticoagulation. No signs of bleeding. Ongoing tele monitoring. Echo pending. Continue current mgt. (2) Pneumonia: Status: Acute Assessment and Plan: Followed by hospitalist. Breathing comfortable at this time (3) Toxic metabolic encephalopathy: Status: Acute Assessment and Plan: Still has confusion. Pleasant at present Fall Risk Details Current Medications: Current Medications Generic Name Dose Route Start Last Admin Trade Name Neelima PRN Reason Stop Dose Admin Acetaminophen 650 mg 01/06/21 14:45 Acetaminophen 325 Mg Tablet PO Q6H PRN Pain, Mild (Pain Scale 1-3) Apixaban 5 mg 01/07/21 09:00 01/07/21 10:05 Apixaban 5 Mg Tablet PO 5 mg BID AMAURY Administration Artificial Tears 2 drop 01/06/21 17:35 Artificial Tears 15 Ml Drops EYE-BOTH Q4H PRN Dry Eyes Ceftriaxone Sodium 1 gm/ 50 mls @ 100 mls/hr 01/07/21 06:00 01/07/21 05:49 Sodium Chloride IV Infused Q24H [facility] Infusion Azithromycin 500 mg/ Sodium 250 mls @ 125 mls/hr 01/07/21 11:15 01/07/21 12:23 Chloride IV 125 mls/hr Q24H [facility]URY Administration Insulin Human Lispro 0 unit 01/07/21 07:30 01/07/21 11:50 Insulin Lispro 100 Unit/Ml 3 Ml Vial SUBCUT 6 unit QIDACHS [facility] Administration Protocol Ketorolac Tromethamine 15 mg 01/06/21 14:45 Ketorolac Tromethamine 30 Mg/Ml Vial IVPUSH 01/11/21 14:44 Q6H PRN Pain, Moderate (Pain Scale 4-6 Metoprolol Tartrate 50 mg 01/07/21 13:00 01/07/21 12:24 Metoprolol Tartrate 25 Mg Tablet PO 50 mg QID [facility] Administration Protocol Ondansetron HCl 4 mg 01/06/21 14:45 Ondansetron Hcl 4 Mg/2 Ml Vial IVPUSH Q8H PRN Nausea and Vomiting Sodium Chloride 3 ml 01/06/21 16:00 01/07/21 09:29 0.9 % Sodium Chloride Flush 3 Ml Syringe IVFLUSH Not Given QSHIFT [facility] Time Spent With Patient Time: Total time spent is greater than 50% in coordination of care (as documented) at patient's floor/unit and/or counseling patient: 18 Time with patient: 15 - 24 minutes
[2021-01-07] MEDS: 0.9 % Sodium Chloride Flush 3 ML SYRINGE IVFLUSH ×2 (16:14→21:28)
[2021-01-07 16:25] LABS: Glucose, Whole Blood 107 mg/dL (60-115)
[2021-01-07] MEDS: Ketorolac Tromethamine 30 MG/ML VIAL 15 MG IVPUSH (19:50)
[2021-01-07 21:19] LABS: Glucose, Whole Blood 177 mg/dL (60-115)
[2021-01-08] VITALS (9 sets, daily range): BP systolic 114–149; BP diastolic 63–96; PULSE 80–91; RESP 18–20; TEMP 35.8–37.1; O2SAT 95–98
[2021-01-08] MEDS: cefTRIAXone sodium 1 GM in 0.9 % Sodium Chloride 50 ML IV (05:18)
[2021-01-08 06:27] LABS: Hematocrit 33.4 % (37-47); Hemoglobin 11.8 g/dl (12.0-16.0); Mean Corpuscular HGB Conc 35.3 g/dl (31.0-35.0); Mean Corpuscular Hemoglobin 32.8 pg (27.0-33.0); Mean Corpuscular Volume 92.8 fL (80-98); Mean Platelet Volume 11.2 fL (9.4-12.3); Platelet Count 157 X10*3/uL (160-400); Red Cell Distribution Width 12.3 % (11.0-16.0); White Blood Count 8.9 X10*3/uL (4.8-10.8)
[2021-01-08 07:12] LABS: Glucose, Whole Blood 127 mg/dL (60-115)
[2021-01-08 07:20] LABS: Alanine Aminotransferase 26 U/L (0-31); Albumin Level 3.3 g/dL (3.5-5.0); Alkaline Phosphatase 52 U/L (39-117); Anion Gap 15 (12-20); Aspartate Amino Transferase 26 U/L (5-31); Bilirubin Direct 0.4 mg/dL (0.0-0.5); Bilirubin Total 0.9 mg/dL (0.0-1.0); Blood Urea Nitrogen 23 mg/dL (9-16); Calcium 7.9 mg/dL (8.4-10.2); Carbon Dioxide 21 mmol/L (22-29); Chloride 109 mmol/L (96-108); Creatinine Clr Calc Pharmacy 70.8; Estimated Glomerular Filt Rate > 60; Glucose Random 119 mg/dL (60-115); Potassium 3.8 mmol/L (3.3-5.1); Sodium 141 mmol/L (135-145); Total Protein 5.5 g/dL (6.5-8.0)
[2021-01-08] MEDS: 0.9 % Sodium Chloride Flush 3 ML SYRINGE IVFLUSH ×3 (07:50→22:37)
[2021-01-08] MEDS: Metoprolol Tartrate 25 MG TABLET 50 MG PO (09:35)
[2021-01-08] MEDS: Apixaban 5 MG TABLET PO ×2 (09:35→22:37)
[2021-01-08 11:21] LABS: Glucose, Whole Blood 159 mg/dL (60-115)
--- NOTE | 2021-01-08 12:31 | PM.PNCARD ---
Subjective Subjective Date of Service: 01/08/21 Principal diagnosis: afib, AMS, PNA Interval history: Cardiology follow up for afib. Seen at 0900. Today she reports no sob, chest pains, palpitations. She seems more appropriate at the time of my visit however now has a bedside sitter. Oriented to person and place. Does not recall seeing me or hearing about afib diagnosis yesterday. Review of Systems Review of Systems as above - confusion - unclear accuracy of her response Yes Unobtainable due to mental condition Physical Exam Vital Signs: Last Vital Signs Temp 96.4 F L 01/08/21 11:01 Pulse 80 01/08/21 11:01 Resp 20 01/08/21 11:01 BP 135/65 01/08/21 11: Pulse Ox 97 01/08/21 11:01 Body Mass Index 31.8 Const General: cooperative, no acute distress, alert and awake Eyes Conjunctivae: conjunctivae normal Neck Neck: Yes normal visual inspection and Yes no JVD Resp Other: Sat 97% on RA Effort & Inspection: normal respiratory effort, able to speak in complete sentences and not labored Auscultation: clear to auscultation bilaterally, no crackles, no rales, no rhonchi and no wheezes Cardio Other: heart tones irrregularly irregular Rate: regular rate Heart sounds: S1 normal heart sound present and S2 normal heart sound present GI Inspection: Yes normal to inspection Extrem Other: Chronic left lower leg swelling, unchanged Results Labs and Meds Result diagrams: 01/08/21 05:28 01/08/21 05:28 Lab results: Laboratory Results - last 24 hr 01/07/21 01/07/21 01/07/21 05:34 16:09 20:37 WBC RBC Hgb Hct MCV MCH MCHC RDW Plt Count MPV Absolute Nucleated RBC Nucleated RBC % (auto) Sodium Potassium Chloride Carbon Dioxide Anion Gap BUN Creatinine Estim Creat Clear Calc Estimated GFR POC Glucose 107 177 H Random Glucose Calcium Total Bilirubin Direct Bilirubin AST ALT Alkaline Phosphatase Total Protein Albumin Vitamin B12 304 Folate 19.6 01/08/21 01/08/21 01/08/21 05:28 05:28 07:08 WBC 8.9 RBC 3.60 L Hgb 11.8 L Hct 33.4 L MCV 92.8 MCH 32.8 MCHC 35.3 H RDW 12.3 Plt Count 157 L MPV 11.2 Absolute Nucleated RBC 0.000 Nucleated RBC % (auto) 0.0 Sodium 141 Potassium 3.8 Chloride 109 H Carbon Dioxide 21 L Anion Gap 15 BUN 23 H Creatinine 0.88 Estim Creat Clear Calc 70.8 Estimated GFR > 60 POC Glucose 127 H Random Glucose 119 H Calcium 7.9 L Total Bilirubin 0.9 Direct Bilirubin 0.4 AST 26 D ALT 26 Alkaline Phosphatase 52 Total Protein 5.5 L Albumin 3.3 L Vitamin B12 Folate 01/08/21 11:08 WBC RBC Hgb Hct MCV MCH MCHC RDW Plt Count MPV Absolute Nucleated RBC Nucleated RBC % (auto) Sodium Potassium Chloride Carbon Dioxide Anion Gap BUN Creatinine Estim Creat Clear Calc Estimated GFR POC Glucose 159 H Random Glucose Calcium Total Bilirubin Direct Bilirubin AST ALT Alkaline Phosphatase Total Protein Albumin Vitamin B12 Folate Progress Note: A&P Assessment and plan (1) Atrial fibrillation with RVR: Status: Acute Assessment and Plan: New finding of afib this admit. Rate controlled with Metoprolol. Tele shows afib rates 90-120. Echo shows EF 55-60%, WMA can't be excluded,LA severely dilated, + PFO with right to left shunt, mild to mod MR. With her dilated LA, she has likely had Afib for some time. Denies palpitations or sob. CHADSVASc score of at least 2. On Eliquis for anticoagulation. No visable signs of bleeding. Hgb has come down from 14.4 on admit down to 11.8 today. Some could be dilutional. Recommend stool occult blood check. If signs of bleeding, then hold Eliquis and obtain GI consult. Ongoing tele monitoring while inpt. Will change Metoprolol to 100mg bid, from 50mg QID. We will follow as needed and will arrange for cardiology follow up after discharge. (2) Syncope and collapse determined by examination: Status: Acute Assessment and Plan: Afib seen on tele, no other arrythmia. Has normal EF. Confusion/ metabolic enchepalopathy. Seen by neurology, note reviewed - possibly had seizure. EEG was recommended (3) Toxic metabolic encephalopathy: Status: Acute (4) Sepsis: Status: Acute Assessment and Plan: On antibiotics. Followed by hospitalist (5) Pneumonia: Status: Acute Assessment and Plan: Improving. Lungs clear on exam. Sat 97% on RA. On antibiotics. Fall Risk Details Current Medications: Current Medications Generic Name Dose Route Start Last Admin Trade Name Freq PRN Reason Stop Dose Admin Acetaminophen 650 mg 01/06/21 14:45 Acetaminophen 325 Mg Tablet PO Q6H PRN Pain, Mild (Pain Scale 1-3) Apixaban 5 mg 01/07/21 09:00 01/08/21 09:35 Apixaban 5 Mg Tablet PO 5 mg BID AMAURY Administration Artificial Tears 2 drop 01/06/21 17:35 Artificial Tears 15 Ml Drops EYE-BOTH Q4H PRN Dry Eyes Ceftriaxone Sodium 1 gm/ 50 mls @ 100 mls/hr 01/07/21 06:00 01/08/21 06:00 Sodium Chloride IV Infused Q24H [facility] Infusion Azithromycin 500 mg/ Sodium 250 mls @ 125 mls/hr 01/07/21 11:15 01/07/21 14:24 Chloride IV Infused Q24H [facility] Infusion Insulin Human Lispro 0 unit 01/07/21 07:30 01/08/21 07:47 Insulin Lispro 100 Unit/Ml 3 Ml Vial SUBCUT Not Given QIDACHS [facility] Protocol Ketorolac Tromethamine 15 mg 01/06/21 14:45 01/07/21 19:50 Ketorolac Tromethamine 30 Mg/Ml Vial IVPUSH 01/11/21 14:44 15 mg Q6H PRN Administration Pain, Moderate (Pain Scale 4-6 Metoprolol Tartrate 50 mg 01/07/21 13:00 01/08/21 09:35 Metoprolol Tartrate 25 Mg Tablet PO 50 mg QID [facility] Administration Protocol Ondansetron HCl 4 mg 01/06/21 14:45 Ondansetron Hcl 4 Mg/2 Ml Vial IVPUSH Q8H PRN Nausea and Vomiting Sodium Chloride 3 ml 01/06/21 16:00 01/08/21 07:50 0.9 % Sodium Chloride Flush 3 Ml Syringe IVFLUSH 3 ml QSHIFT [facility] Administration Time Spent With Patient Time: Total time spent is greater than 50% in coordination of care (as documented) at patient's floor/unit and/or counseling patient: 20 Time with patient: 15 - 24 minutes
[2021-01-08] MEDS: Azithromycin 500 MG in 0.9 % Sodium Chloride 250 ML 125 MG IV (13:12)
[2021-01-08] MEDS: Insulin Lispro 100 UNIT/ML 3 ML VIAL SUBCUT ×2 (13:12→16:48)
--- NOTE | 2021-01-08 15:35 | P.PNIM_ITS ---
Subjective Subjective Date of Service: 01/09/21 Interval History: Patient sitting on recliner denies pain, remains pleasantly confused although is aware that she is at [facility], does not recall what happened to her and how she was on the floor, Patient denies any headache, no dizziness no urinary symptoms no chest pain or shortness of breath, knows that she has to take out her hearing aids for MRI, no other acute issues overnight. ROS patient pleasantly confused not aware the accuracy of her history General no headache, no dizziness no fever chills. CVS no chest pain, no palpitation. Respiratory no cough, no sob Gastrointestinal no nausea, no vomiting, no abdominal pain Physical Exam Vital Signs: Vital Signs: Last Vital Signs Temp 96.4 F L 01/08/21 11: Pulse 80 01/08/21 11:01 Resp 20 01/08/21 11:01 BP 135/65 01/08/21 11:01 Pulse Ox 97 01/08/21 11:01 Body Mass Index 31.8 General comfortably sitting on chair, no acute distress. Neck supple no JVD. CVS irregular rate rhythm, Respiratory lungs clear to auscultation, no respiratory distress, no wheeze, no rhonchi. Gastrointestinal abdomen soft, nontender, bowel sounds audible,no guarding , no rigidity. 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 Objective Data Current Medications Generic Name Dose Route Start Last Admin Trade Name Freq PRN Reason Stop Dose Admin Acetaminophen 650 mg 01/06/21 14:45 Acetaminophen 325 Mg Tablet PO Q6H PRN Pain, Mild (Pain Scale 1-3) Apixaban 5 mg 01/07/21 09:00 01/08/21 09:35 Apixaban 5 Mg Tablet PO 5 mg BID [facility] Administration Artificial Tears 2 drop 01/06/21 17:35 Artificial Tears 15 Ml Drops EYE-BOTH Q4H PRN Dry Eyes Ceftriaxone Sodium 1 gm/ 50 mls @ 100 mls/hr 01/07/21 06:00 01/08/21 06:00 Sodium Chloride IV Infused Q24H [facility] Infusion Azithromycin 500 mg/ Sodium 250 mls @ 125 mls/hr 01/07/21 11:15 01/08/21 15:17 Chloride IV Infused Q24H [facility] Infusion Insulin Human Lispro 0 unit 01/07/21 07:30 01/08/21 13:12 Insulin Lispro 100 Unit/Ml 3 Ml Vial SUBCUT 2 unit QIDACHS [facility] Administration Protocol Ketorolac Tromethamine 15 mg 01/06/21 14:45 01/07/21 19:50 Ketorolac Tromethamine 30 Mg/Ml Vial IVPUSH 01/11/21 14:44 15 mg Q6H PRN Administration Pain, Moderate (Pain Scale 4-6 Metoprolol Tartrate 100 mg 01/08/21 21:00 Metoprolol Tartrate 100 Mg Tablet PO BID [facility] Protocol Ondansetron HCl 4 mg 01/06/21 14:45 Ondansetron Hcl 4 Mg/2 Ml Vial IVPUSH Q8H PRN Nausea and Vomiting Sodium Chloride 3 ml 01/06/21 16:00 01/08/21 07:50 0.9 % Sodium Chloride Flush 3 Ml Syringe IVFLUSH 3 ml QSHIFT [facility] Administration Labs CBC & Chem 7: 01/09/21 05:57 01/08/21 05:28 Microbiology Microbiology Results: Microbiology 01/06/21 01:58 Blood - Venous Blood Culture - Preliminary No growth after 48 hours. 01/06/21 01:58 Blood - Venous Blood Culture - Preliminary No growth after 48 hours. Assessment and Plan (1) Syncope and collapse determined by examination: Status: Acute (2) Toxic metabolic encephalopathy: Status: Acute (3) Atrial fibrillation with RVR: Status: Acute (4) Rhabdomyolysis: Status: Acute Assessment and Plan: 65 years old lady with no clear past medical history who presents from home as EMS found the patient on the floor after she has been disappeared for 3 days according to her neighbor's. Sepsis Likely secondary to pneumonia Possible aspiration, CT chest showed dependent changes along the posterior aspect of lower lobes and also showed pulmonary nodule left upper lobe, blood cultures x2 are negative, WBC normalized Continue IV antibiotics ceftriaxone and azithromycin. Toxic metabolic encephalopathy Unclear etiology, CT scan of the head negative for any acute findings, U tox screen negative, echocardiogram showed EF 55-60% left atrial enlargement, EEG obtained report pending, will obtain MRI study to rule out CVA with underlying atrial fibrillation spoke with patient's sister Sonia who informed that patient at baseline has no confusion, no prior similar episode patient lives alone and supposed to be ambulating with a walker, no history of alcohol or illicit drug use. No history of alcohol intake per her sisters Neurology evaluation appreciated, to check EEG for possible seizure Reorientation, treat underlying infection New onset atrial fibrillation with RVR Patient asymptomatic with no chest pain, no palpitation, on metoprolol 50 q.i.d. will change to 100 mg b.i.d. chart vascular score of 2 on Eliquis follow CBC since noted to have drop in hematocrit Stool guaiac if hematocrit continue to trend down will DC Eliquis and obtain GI workup. Due to enlarged left atrium it seems atrial fibrillation is chronic. Chronic left leg swelling will rule out DVT and obtain Doppler study of left lower extremity. Contusions Likely secondary to fall\possible seizure continue local care, pain medication as needed DVT PPX on Eliquis
[2021-01-08 16:04] LABS: Glucose, Whole Blood 210 mg/dL (60-115)
[2021-01-08 18:48] LABS: OBS Int Ctl Valid YES; OBS1 NEGATIVE (NEGATIVE)
[2021-01-08 20:43] LABS: Glucose, Whole Blood 96 mg/dL (60-115)
[2021-01-08] MEDS: Acetaminophen 325 MG TABLET 650 MG PO (22:37)
[2021-01-08] MEDS: Metoprolol Tartrate 100 MG TABLET PO (22:37)
[2021-01-09] VITALS (8 sets, daily range): BP systolic 116–156; BP diastolic 67–86; PULSE 74–87; RESP 17–22; TEMP 36.1–37.3; O2SAT 92–97
[2021-01-09] MEDS: cefTRIAXone sodium 1 GM in 0.9 % Sodium Chloride 50 ML IV (05:58)
[2021-01-09 06:46] LABS: MANUAL DIFF FLAG NO
[2021-01-09 06:52] LABS: Basophils Absolute Auto 0.1 X10*3/uL (0.0-0.2); Basophils Percent Auto 0.8 % (0-2); Eosinophils Absolute Auto 0.8 X10*3/uL (0.0-0.4); Hematocrit 34.8 % (37-47); Imm Gran Abs Auto 0.04 X10*3/uL (0.00-0.03); Imm Gran Pct Auto 0.5 % (0.0-0.4); Lymphocytes Absolute Auto 1.7 X10*3/uL (1.2-4.9); Lymphocytes Percent Auto 19.1 % (20-40); Mean Corpuscular HGB Conc 34.5 g/dl (31.0-35.0); Mean Corpuscular Hemoglobin 32.3 pg (27.0-33.0); Mean Corpuscular Volume 93.5 fL (80-98); Mean Platelet Volume 10.5 fL (9.4-12.3); Monocytes Absolute Auto 0.6 X10*3/uL (0.1-1.2); Monocytes Percent Auto 7.1 % (2-11); Neutrophils Absolute Auto 5.5 X10*3/uL (2.0-8.3); Neutrophils Percent Auto 63.5 % (45-73); Platelet Count 179 X10*3/uL (160-400); Red Blood Count 3.72 X10*6/uL (4.20-5.50); Red Cell Distribution Width 12.3 % (11.0-16.0); White Blood Count 8.7 X10*3/uL (4.8-10.8)
[2021-01-09 07:45] LABS: Glucose, Whole Blood 112 mg/dL (60-115)
[2021-01-09] MEDS: Metoprolol Tartrate 100 MG TABLET PO ×2 (10:10→20:22)
[2021-01-09] MEDS: Apixaban 5 MG TABLET PO ×2 (10:10→20:22)
[2021-01-09] MEDS: 0.9 % Sodium Chloride Flush 3 ML SYRINGE IVFLUSH ×3 (10:11→20:24)
[2021-01-09 11:28] LABS: Glucose, Whole Blood 165 mg/dL (60-115)
--- NOTE | 2021-01-09 11:36 | MHC.CM.PN ---
Per ROUNDS discussion, Patient MAY be ready for dc over the weekend.With Patient's insurance, authorization is needed but not often obtainable over a weekend. Therefor, CM spoke with Sister/Sonia @ [phone] (Patient is still confused and unable to complete a HCP). CM let Sonia know that dc may occur over the weekend and encourage Sonia to consider choosing of the 3 SNFs in this area, who are contracted with Patient's insurance AND have a bed to offer ([facility] [place] [facility] [place] [facility]). Sonia was unwilling to discuss options until she spoke with MD again (Sonia & met in person yesterday). BRETT has requested that MD call Sonia ELVIN and she indicated that she would reach out to Sonia once she has EEG results (MRI that Sonia insisted on was unremarkable). BRETT will continue to follow for dc planning.
[2021-01-09] MEDS: Insulin Lispro 100 UNIT/ML 3 ML VIAL SUBCUT ×3 (12:47→20:23)
[2021-01-09] MEDS: Azithromycin 500 MG in 0.9 % Sodium Chloride 250 ML 125 MG IV (12:47)
--- NOTE | 2021-01-09 13:12 | MHC.CM.PN ---
CM received a call from Patient's Sister/Sonia, who has chosen [facility] for STR. BRETT has asked [facility] to begin insurance authorization process. CM reminded MD to call Sonia today with EEG results. Patient will need a HCP prior to dc, once cognition improves. CM will follow.
--- NOTE | 2021-01-09 15:16 | HO.PM.IMPN ---
Subjective Subjective Date of Service: 01/09/21 Interval History: Patient more awake alert this morning, answering questions appropriately is aware of place and person offers no acute complaints knows the name of for sister unable to recall what happened to her and how she fell to the floor, but can recall events when EMS arrived to bring her to the hospital. ROS General no headache, no dizziness no fever chills. CVS no chest pain, no palpitation. Respiratory no cough, no sob Gastrointestinal no nausea, no vomiting, no abdominal pain Physical Exam Vital Signs: Vital Signs: Last Vital Signs Temp 97.4 F 01/09/21 11:27 Pulse 74 01/09/21 11:27 Resp 22 H 01/09/21 11:27 BP 116/72 01/09/21 11:27 Pulse Ox 96 01/09/21 11:27 Body Mass Index 31.8 General sitting on chair, no acute distress. Neck supple no JVD. CVS irregular rate rhythm, Respiratory lungs clear to auscultation, no respiratory distress, no wheeze, no rhonchi. Gastrointestinal abdomen soft, nontender, bowel sounds audible,no guarding , no rigidity. 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 Objective Data Current Medications Generic Name Dose Route Start Last Admin Trade Name Freq PRN Reason Stop Dose Admin Acetaminophen 650 mg 01/06/21 14:45 01/08/21 22:37 Acetaminophen 325 Mg Tablet PO 650 mg Q6H PRN Administration Pain, Mild (Pain Scale 1-3) Apixaban 5 mg 01/07/21 09:00 01/09/21 10:10 Apixaban 5 Mg Tablet PO 5 mg BID [facility] Administration Artificial Tears 2 drop 01/06/21 17:35 Artificial Tears 15 Ml Drops EYE-BOTH Q4H PRN Dry Eyes Ceftriaxone Sodium 1 gm/ 50 mls @ 100 mls/hr 01/07/21 06:00 01/09/21 07:00 Sodium Chloride IV Infused Q24H [facility] Infusion Azithromycin 500 mg/ Sodium 250 mls @ 125 mls/hr 01/07/21 11:15 01/09/21 12:47 Chloride IV 125 mls/hr Q24H [facility] Administration Insulin Human Lispro 0 unit 01/07/21 07:30 01/09/21 12:47 Insulin Lispro 100 Unit/Ml 3 Ml Vial SUBCUT 2 unit QIDACHS [facility] Administration Protocol Ketorolac Tromethamine 15 mg 01/06/21 14:45 01/07/21 19:50 Ketorolac Tromethamine 30 Mg/Ml Vial IVPUSH 01/11/21 14:44 15 mg Q6H PRN Administration Pain, Moderate (Pain Scale 4-6 Metoprolol Tartrate 100 mg 01/08/21 21:00 01/09/21 10:10 Metoprolol Tartrate 100 Mg Tablet PO 100 mg BID [facility] Administration Protocol Ondansetron HCl 4 mg 01/06/21 14:45 Ondansetron Hcl 4 Mg/2 Ml Vial IVPUSH Q8H PRN Nausea and Vomiting Sodium Chloride 3 ml 01/06/21 16:00 01/09/21 10:11 0.9 % Sodium Chloride Flush 3 Ml Syringe IVFLUSH 3 ml QSHIFT [facility] Administration Labs CBC & Chem 7: 01/09/21 05:57 01/08/21 05:28 Microbiology Microbiology Results: Microbiology 01/06/21 01:58 Blood - Venous Blood Culture - Preliminary No growth after 48 hours. 01/06/21 01:58 Blood - Venous Blood Culture - Preliminary No growth after 48 hours. Assessment and Plan (1) Syncope and collapse determined by examination: Status: Acute (2) Sepsis: Status: Acute (3) Toxic metabolic encephalopathy: Status: Acute (4) Atrial fibrillation with RVR: Status: Acute (5) Pneumonia: Status: Acute (6) Rhabdomyolysis: Status: Acute Assessment and Plan: 65 years old lady with no clear past medical history who presents from home as EMS found the patient on the floor after she has been disappeared for 3 days according to her neighbor's. Sepsis Likely secondary to pneumonia All features of sepsis resolved no tachycardia, tachypnea, and leukocytosis Possible aspiration, CT chest showed dependent changes along the posterior aspect of lower lobes and also showed pulmonary nodule left upper lobe, blood cultures x2 are negative, WBC normalized Will switch to by mouth antibiotic Augmentin 875 b.i.d. Toxic metabolic encephalopathy Patient much more awake alert answering questions appropriately will discuss baseline with sister,Unclear etiology of confusion on presentation, CT scan of the head negative for any acute findings, U tox screen negative, echocardiogram showed EF 55-60% left atrial enlargement, EEG obtained report pending, MRI no acute abnormality, spoke with patient's sister Sonia she feels patient is still confused,at baseline has no confusion, no prior similar episode patient lives alone and supposed to be ambulating with a walker, no history of alcohol or illicit drug use. Patient seen by Physical therapy and they are recommending short-term rehab upon discharge rn social services are looking for bed. No history of alcohol intake per her sisters Neurology evaluation appreciated, EEG obtained report pending continue above treatment for infection New onset atrial fibrillation with RVR Patient asymptomatic with no chest pain, no palpitation, on metoprolol 50 q.i.d. will change to 100 mg b.i.d. chart vascular score of 2 on Eliquis follow CBC hematocrit stable Due to enlarged left atrium it seems atrial fibrillation is chronic. Chronic left leg swelling Doppler study of left lower extremity showed no DVT. Mild rhabdo cpk 770 ,due to fall stable renal function. Skin abrasion and ecchymosis secondary to fall\possible seizure continue local care, pain medication as needed. DVT PPX on Eliquis
[2021-01-09 16:05] LABS: Glucose, Whole Blood 164 mg/dL (60-115)
[2021-01-09] MEDS: Amoxicillin/Potassium Clav 875 MG TABLET PO (16:38)
[2021-01-09 19:01] LABS: Glucose, Whole Blood 171 mg/dL (60-115)
[2021-01-09 19:55] LABS: Glucose, Whole Blood 199 mg/dL (60-115)
[2021-01-10] VITALS (7 sets, daily range): BP systolic 120–155; BP diastolic 65–77; PULSE 68–85; RESP 16–20; TEMP 36.2–37; O2SAT 96–98
[2021-01-10] MEDS: Amoxicillin/Potassium Clav 875 MG TABLET PO ×2 (04:30→16:35)
[2021-01-10 07:42] LABS: Glucose, Whole Blood 122 mg/dL (60-115)
[2021-01-10] MEDS: Metoprolol Tartrate 100 MG TABLET PO ×2 (08:52→20:31)
[2021-01-10] MEDS: 0.9 % Sodium Chloride Flush 3 ML SYRINGE IVFLUSH ×2 (08:52→16:36)
[2021-01-10] MEDS: Apixaban 5 MG TABLET PO ×2 (08:52→20:31)
--- NOTE | 2021-01-10 11:19 | HO.PM.IMPN ---
Subjective Subjective Date of Service: 01/11/21 Interval History: Patient awake alert able to carry on a normal conversation, unable to recall circumstances around her fall therefore remains frustrated, able to given name of her neighbor able to recall what happened in last 24-48 hours in the hospital including name of her friend and sister who came to visit her, wants to walk by herself. ROS General no headache, no dizziness no fever chills. CVS no chest pain, no palpitation. Respiratory no cough, no sob Gastrointestinal no nausea, no vomiting, no abdominal pain Physical Exam Vital Signs: Vital Signs: Last Vital Signs Temp 97.2 F 01/10/21 07:35 Pulse 70 01/10/21 07:35 Resp 18 01/10/21 07:35 BP 136/69 01/10/21 07:35 Pulse Ox 96 01/10/21 07:35 Body Mass Index 31.8 General no acute distress. Neck supple no JVD. CVS irregular rate rhythm, Respiratory lungs clear to auscultation, no respiratory distress, no wheeze, no rhonchi. Gastrointestinal abdomen soft, nontender, bowel sounds audible,no guarding , no rigidity. Extremities left leg significantly bigger than right, no pitting edema seems chronic as per patient, left upper extremity with multiple abrasions Neuro speech clear, normal neuro examination Objective Data Current Medications Generic Name Dose Route Start Last Admin Trade Name Loyq PRN Reason Stop Dose Admin Acetaminophen 650 mg 01/06/21 14:45 01/08/21 22:37 Acetaminophen 325 Mg Tablet PO 650 mg Q6H PRN Administration Pain, Mild (Pain Scale 1-3) Amoxicillin/Clavulanate Potassium 875 mg 01/09/21 16:00 01/10/21 04:30 Amoxicillin/Potassium Clav 875 Mg Tablet PO 875 mg Q12H [facility] Administration Apixaban 5 mg 01/07/21 09:00 01/10/21 08:52 Apixaban 5 Mg Tablet PO 5 mg BID [facility] Administration Artificial Tears 2 drop 01/06/21 17:35 Artificial Tears 15 Ml Drops EYE-BOTH Q4H PRN Dry Eyes Insulin Human Lispro 0 unit 01/07/21 07:30 01/10/21 08:43 Insulin Lispro 100 Unit/Ml 3 Ml Vial SUBCUT Not Given QIDACHS [facility] Protocol Ketorolac Tromethamine 15 mg 01/06/21 14:45 01/07/21 19:50 Ketorolac Tromethamine 30 Mg/Ml Vial IVPUSH 01/11/21 14:44 15 mg Q6H PRN Administration Pain, Moderate (Pain Scale 4-6 Metoprolol Tartrate 100 mg 01/08/21 21:00 01/10/21 08:52 Metoprolol Tartrate 100 Mg Tablet PO 100 mg BID [facility] Administration Protocol Ondansetron HCl 4 mg 01/06/21 14:45 Ondansetron Hcl 4 Mg/2 Ml Vial IVPUSH Q8H PRN Nausea and Vomiting Sodium Chloride 3 ml 01/06/21 16:00 01/10/21 08:52 0.9 % Sodium Chloride Flush 3 Ml Syringe IVFLUSH 3 ml QSHIFT [facility] Administration Labs CBC & Chem 7: 01/09/21 05:57 01/08/21 05:28 Microbiology Microbiology Results: Microbiology 01/06/21 01:58 Blood - Venous Blood Culture - Preliminary No growth after 48 hours. 01/06/21 01:58 Blood - Venous Blood Culture - Preliminary No growth after 48 hours. Assessment and Plan (1) Syncope and collapse determined by examination: Status: Acute (2) Toxic metabolic encephalopathy: Status: Acute (3) Pneumonia: Status: Acute (4) Rhabdomyolysis: Status: Acute (5) Sepsis: Status: Acute (6) Atrial fibrillation with RVR: Status: Acute Assessment and Plan: 65 years old lady with no clear past medical history who presents from home as EMS found the patient on the floor after she has been disappeared for 3 days according to her neighbor's. Sepsis Likely secondary to pneumonia All features of sepsis resolved no tachycardia, tachypnea, no leukocytosis Possible aspiration, CT chest showed dependent changes along the posterior aspect of lower lobes and also showed pulmonary nodule left upper lobe, blood cultures x2 are negative, WBC normalized Continue Augmentin 875 b.i.d.day 01/14 Toxic metabolic encephalopathy Patient much more awake alert answering questions appropriately every day making progress, spoke with sister she feels she is not yet at her baseline, etiology of confusion remains unclear, CT scan of the head negative for any acute findings, U tox screen negative, echocardiogram showed EF 55-60% left atrial enlargement,MRI no acute abnormality,EEG obtained report pending, no prior similar episode patient lives alone and supposed to be ambulating with a walker, no history of alcohol or illicit drug use. Patient seen by Physical therapy and they are recommending short-term rehab upon discharge social services coordinator are looking for bed. No history of alcohol intake per her sisterNeurology evaluation appreciated, EEG obtained report pending continue above treatment for infection, patient gave permission to talk to her friend Priscila to gather more information about what condition she was found in about her baseline # is [phone]. New onset atrial fibrillation with RVR Patient asymptomatic with no chest pain, no palpitation, on metoprolol 100 mg b.i.d. chart vascular score of 2 on Eliquis follow CBC hematocrit stable Due to enlarged left atrium it seems atrial fibrillation is chronic. Chronic left leg swelling Doppler study of left lower extremity showed no DVT. Mild rhabdo cpk 770 ,due to fall stable renal function. Skin abrasion and ecchymosis secondary to fall\possible seizure continue local care, pain medication as needed. DVT PPX on Eliquis
[2021-01-10 11:32] LABS: Glucose, Whole Blood 223 mg/dL (60-115)
[2021-01-10] MEDS: Artificial Tears 15 ML DROPS 2 DROP EYE-BOTH ×2 (12:51→16:35)
[2021-01-10] MEDS: Insulin Lispro 100 UNIT/ML 3 ML VIAL SUBCUT ×3 (12:51→20:31)
[2021-01-10 16:23] LABS: Glucose, Whole Blood 173 mg/dL (60-115)
[2021-01-10 20:23] LABS: Glucose, Whole Blood 161 mg/dL (60-115)
[2021-01-11] VITALS (7 sets, daily range): BP systolic 131–176; BP diastolic 65–86; PULSE 70–86; RESP 18; TEMP 36.5–37; O2SAT 95–98
[2021-01-11] MEDS: 0.9 % Sodium Chloride Flush 3 ML SYRINGE IVFLUSH ×4 (04:36→21:54)
[2021-01-11] MEDS: Amoxicillin/Potassium Clav 875 MG TABLET PO ×2 (04:36→16:50)
[2021-01-11 07:40] LABS: Glucose, Whole Blood 130 mg/dL (60-115)
[2021-01-11] MEDS: Metoprolol Tartrate 100 MG TABLET PO ×2 (08:09→21:55)
[2021-01-11] MEDS: Apixaban 5 MG TABLET PO ×2 (08:09→21:54)
[2021-01-11 11:38] LABS: Glucose, Whole Blood 200 mg/dL (60-115)
[2021-01-11] MEDS: Insulin Lispro 100 UNIT/ML 3 ML VIAL SUBCUT ×2 (12:00→21:54)
--- NOTE | 2021-01-11 15:08 | HO.PM.IMPN ---
Subjective Subjective Date of Service: 01/11/21 Interval History: Patient awake alert answering all questions appropriately offers no acute complaints feels dryness of left arm, noted some tingling of right hand now resolved, no fever chills no chest pain or palpitations overnight. ROS General no headache, no dizziness no fever chills. CVS no chest pain, no palpitation. Respiratory no cough, no sob Gastrointestinal no nausea, no vomiting, no abdominal pain Physical Exam Vital Signs: Vital Signs: Last Vital Signs Temp 97.8 F 01/11/21 08:00 Pulse 80 01/11/21 11:41 Resp 18 01/11/21 11:41 BP 140/65 H 01/11/21 11:41 Pulse Ox 95 01/11/21 11:41 Body Mass Index 31.8 General no acute distress. Neck supple no JVD. CVS irregular rate rhythm, Respiratory lungs clear to auscultation, no respiratory distress, no wheeze, no rhonchi. Gastrointestinal abdomen soft, nontender, bowel sounds audible,no guarding , no rigidity. Extremities left leg significantly bigger than right, no pitting edema seems chronic as per patient, left upper extremity with multiple abrasions/scabs healing well Neuro speech clear, normal neuro examination, answering questions appropriately Objective Data Current Medications Generic Name Dose Route Start Last Admin Trade Name Freq PRN Reason Stop Dose Admin Acetaminophen 650 mg 01/06/21 14:45 01/08/21 22:37 Acetaminophen 325 Mg Tablet PO 650 mg Q6H PRN Administration Pain, Mild (Pain Scale 1-3) Amoxicillin/Clavulanate Potassium 875 mg 01/09/21 16:00 01/11/21 04:36 Amoxicillin/Potassium Clav 875 Mg Tablet PO 875 mg Q12H [facility] Administration Apixaban 5 mg 01/07/21 09:00 01/11/21 08:09 Apixaban 5 Mg Tablet PO 5 mg BID [facility] Administration Artificial Tears 2 drop 01/06/21 17:35 01/10/21 16:35 Artificial Tears 15 Ml Drops EYE-BOTH 2 drop Q4H PRN Administration Dry Eyes Insulin Human Lispro 0 unit 01/07/21 07:30 01/11/21 12:00 Insulin Lispro 100 Unit/Ml 3 Ml Vial SUBCUT 2 unit QIDACHS [facility] Administration Protocol Metoprolol Tartrate 100 mg 01/08/21 21:00 01/11/21 08:09 Metoprolol Tartrate 100 Mg Tablet PO 100 mg BID [facility] Administration Protocol Ondansetron HCl 4 mg 01/06/21 14:45 Ondansetron Hcl 4 Mg/2 Ml Vial IVPUSH Q8H PRN Nausea and Vomiting Sodium Chloride 3 ml 01/06/21 16:00 01/11/21 08:08 0.9 % Sodium Chloride Flush 3 Ml Syringe IVFLUSH 3 ml QSHIFT [facility] Administration Labs CBC & Chem 7: 01/09/21 05:57 01/08/21 05:28 Microbiology Microbiology Results: Microbiology 01/06/21 01:58 Blood - Venous Blood Culture - Final No growth after 5 days. 01/06/21 01:58 Blood - Venous Blood Culture - Final No growth after 5 days. Assessment and Plan (1) Syncope and collapse determined by examination: Status: Acute (2) Sepsis: Status: Acute (3) Toxic metabolic encephalopathy: Status: Acute (4) Atrial fibrillation with RVR: Status: Acute (5) Pneumonia: Status: Acute (6) Rhabdomyolysis: Status: Acute Assessment and Plan: 65 years old lady with no clear past medical history who presents from home as EMS found the patient on the floor after she has been disappeared for 3 days according to her neighbor's. Sepsis Likely secondary to pneumonia All features of sepsis resolved no tachycardia, tachypnea, no leukocytosis Possible aspiration, CT chest showed dependent changes along the posterior aspect of lower lobes and also showed pulmonary nodule left upper lobe, blood cultures x2 are negative, WBC normalized, no recurrent fevers or cough Continue Augmentin 875 b.i.d.day 02/13 Toxic metabolic encephalopathy Patient awake alert answering questions appropriately every day making progress, spoke with patient's friend Karyna at bedside she feels patient is at her baseline level of mentation but will need rehab, for deconditioning. etiology of confusion/fall remains unclear, CT scan of the head negative for any acute findings, U tox screen negative, echocardiogram showed EF 55-60% left atrial enlargement,MRI no acute abnormality,EEG obtained report pending,? Related to seizure versus due to atrial fibrillation with RVR no prior similar episode patient lives alone and supposed to be ambulating with a walker, no history of alcohol or illicit drug use. Patient seen by Physical therapy and they are recommending short-term rehab upon discharge social sciences department chair are looking for bed. New onset atrial fibrillation with RVR Patient asymptomatic with no chest pain, no palpitation, on metoprolol 100 mg b.i.d. chart vascular score of 2 on Eliquis follow CBC hematocrit stable Due to enlarged left atrium it seems atrial fibrillation is chronic. Chronic left leg swelling Doppler study of left lower extremity showed no DVT. Mild rhabdo cpk 770 ,due to fall stable renal function. Skin abrasion and ecchymosis secondary to fall continue local care, pain medication as needed. DVT PPX on Eliquis
[2021-01-11 16:41] LABS: Glucose, Whole Blood 135 mg/dL (60-115)
[2021-01-11 20:54] LABS: Glucose, Whole Blood 167 mg/dL (60-115)
[2021-01-12] VITALS: BP 125/72; PULSE 79; RESP 14; TEMP 36.6; O2SAT 98
[2021-01-12 04:00] VITALS: BP 140/81; PULSE 72; RESP 15; TEMP 36.1; O2SAT 96
[2021-01-12] MEDS: Amoxicillin/Potassium Clav 875 MG TABLET PO (04:43)
[2021-01-12 07:39] LABS: Glucose, Whole Blood 140 mg/dL (60-115)
[2021-01-12] MEDS: Metoprolol Tartrate 100 MG TABLET PO (07:51)
[2021-01-12] MEDS: Apixaban 5 MG TABLET PO (07:52)
[2021-01-12] MEDS: 0.9 % Sodium Chloride Flush 3 ML SYRINGE IVFLUSH (07:52)
[2021-01-12 08:00] VITALS: BP 146/76; PULSE 80; RESP 19; TEMP 36.4; O2SAT 98
--- NOTE | 2021-01-12 10:19 | MHC.CM.PN ---
Patient appears to have cleared mentally and CM was able to complete a HCP with her.
[2021-01-12 10:29] VITALS: BP 146/76; PULSE 80; O2SAT 98
--- NOTE | 2021-01-12 11:26 | MHC.CM.PN ---
Per ROUNDS discussion, Patient will be medically cleared for dc to SNF today. Patient and Sister/HCP/Sonia @ [phone] are aware of and in agreement with the dc plan.Second IMM addressed with Patient and original has been given to her and a copy has been placed on the chart.
[2021-01-12 11:34] LABS: Glucose, Whole Blood 164 mg/dL (60-115)
[2021-01-12 11:47] VITALS: BP 155/76; PULSE 76; RESP 20; TEMP 36.6; O2SAT 97
--- NOTE | 2021-01-12 11:55 | P.DS_ITS ---
DS: Providers Provider Date of Service: 01/12/21 Date of admission: 01/06/21 12:56 Primary care physician: Unknown Physician Consults: 01/06/21 12:56 Consult to Cardiology Routine Consulting Provider: Pelon Moses Reason for consultation: New onset AFib for your kind eval Consult to Neurology Routine Consulting Provider: [facility] Reason for consultation: Evaluation of AMS, possible underlying seizure. DS: Diagnosis Discharge Diagnosis (1) Syncope and collapse determined by examination: Status: Acute (2) Sepsis: Status: Acute (3) Toxic metabolic encephalopathy: Status: Acute (4) Atrial fibrillation with RVR: Status: Acute (5) Pneumonia: Status: Acute (6) Rhabdomyolysis: Status: Acute DS: Medications Discharge Medications Home Medications: Previous Rx's Medication Instructions Recorded apixaban [Eliquis] 5 mg PO BID #60 tab 01/12/21 metformin [Glucophage] 500 mg PO DAILY #30 tab 01/12/21 metoprolol tartrate 100 mg PO BID #60 tab 01/12/21 DS: Summary Hospital Course Hospital Course: History of presenting illness Date of Service: 01/06/21 Chief Complaint: Altered mentation, new new onset AFib, contusions A 65 years old lady with no clear past medical history who presents from home as EMS found the patient on the floor confused after she has been disappeared for 3 days according to her neighbor's. Reported that she was found on floor covered with feces. She was not alert at time of presentation but improved duri ng time in the emergency. At time of interview she was alert, oriented to time and place but still mildly confused and could not remember what happened to her. She could not give a clear story and reported that she does not know why she is in the emergency and that she feels good. Noted in the Emergency to have atrial fibrillation with rapid ventricular response. She is not aware of this diagnosis from before. Tox screen was negative for any drugs. Review alcohol undetectable. Elevated WBCs with left shift, with mildly elevated bilirubin and high creatinine kinase. Admitted for further evaluation and treatment. Hospital course 65 years old lady with no clear past medical history who presents from home as EMS found the patient on the floor after she was disappeared for 2-3 days according to her neighbor's. Sepsis Likely secondary to pneumonia,all features of sepsis resolved no tachycardia, tachypnea, no leukocytosis likely had aspiration pneumonia, CT chest showed dependent changes along the posterior aspect of lower lobes and also showed pulmonary nodule left upper lobe, blood cultures x2 are negative, WBC normalized, no recurrent fevers or cough, finish course of antibiotics. Toxic metabolic encephalopathy On arrival patient was noted to be confused, now awake alert answering questions appropriately,spoke with patient's friend oCdys she feels patient is at her baseline level of mentation but will need rehab, for deconditioning.etiology of confusion/fall remains unclear, CT scan of the head negative for any acute findings, U tox screen negative, echocardiogram showed EF 55-60% left atrial enlargement,MRI no acute abnormality,EEG showed no seizure-like activity,no prior similar episode patient lives alone and supposed to be ambulating with a walker, no history of alcohol or illicit drug use. Patient seen by Physical therapy and they recommended short-term rehab. New onset atrial fibrillation with RVR Patient asymptomatic with no chest pain, no palpitation, on metoprolol 100 mg b.i.d. chads vascular score of 2 on Eliquis, hematocrit stable Due to enlarged left atrium it seems atrial fibrillation is chronic. Chronic left leg swelling Doppler study of left lower extremity showed no DVT. Mild rhabdo cpk 770 ,due to fall stable renal function. Skin abrasion and ecchymosis left arm secondary to fall continue local care, pain medication as needed. Hyperglycemia no prior history of diabetes noted to have random blood sugars 150-200 range therefore started on metformin recommend diabetic diet. Time Spent with Patient Time attestation: Total time spent providing and/or coordinating discharge services: Discharge coordination time: Greater than 30 minutes Physical Exam Vital Signs: Vital Signs: Last Vital Signs Temp 97.9 F 01/12/21 11:47 Pulse 76 01/12/21 11:47 Resp 20 01/12/21 11:47 BP 155/76 H 01/12/21 11:47 Pulse Ox 97 01/12/21 11:47 Body Mass Index 31.8 General no acute distress. Neck supple no JVD. CVS irregular rate rhythm, Respiratory lungs clear to auscultation, no respiratory distress, no wheeze, no rhonchi. Gastrointestinal abdomen soft, nontender, bowel sounds audible,no guarding , no rigidity. Extremities left leg significantly bigger than right, no pitting edema seems chronic as per patient, left upper extremity with multiple abrasions/scabs healing well Neuro speech clear, normal neuro examination, answering questions appropriately. DS: Data Data Completed and Pending Labs on day of discharge: Laboratory Results - last 24 hr 01/11/21 01/11/21 01/12/21 16:27 20:48 07:30 POC Glucose 135 H 167 H 140 H 01/12/21 11:26 POC Glucose 164 H Discharge Plan Discharge Patient Disposition: [facility] [Outside] Physician,Unknown [Primary Care Provider] - Discharge Medications: New metoprolol tartrate 100 mg Tablet 100 mg PO BID Qty: 60 RF: 0 Eliquis 5 mg Tablet 5 mg PO BID Qty: 60 RF: 0 metformin [Glucophage] 500 mg tablet 500 mg PO DAILY Qty: 30 RF: 0 Discharge Orders: Discharge Order (Routine); Ordered 01/12/21 Ordered By: Amina Keenan Diet: diabetic diet and low fat, low cholesterol Activity on Discharge: As tolerated Stand Alone Forms: Patient Portal Discharge page Care Plan Goals: As above Health Concerns: Atrial fibrillation/encephalopathy, hyperglycemia, confusion resolved patient seems to be at baseline, needs some rehab for deconditioning Plan of Treatment: Outpatient follow-up with PCP on discharge from rehab
== END 2021-01-12 14:05 | disposition skilled nursing facility (03) | DRG 871 ==
LOC: HO.ED 01-06 08:27 → HO.EDOVER 01-06 13:11 → HO.IMC 01-06 13:38
PROVIDERS: Admitting Provider Student in an Organized Health Care Education/Training Program; Emergency Provider Student in an Organized Health Care Education/Training Program; PCP Internal Medicine; Visit Provider Hospitalist
DX: A41.9 Sepsis, unspecified organism (principal); J18.9 Pneumonia, unspecified organism; G92 Toxic encephalopathy; T79.6XXA Traumatic ischemia of muscle, initial encounter; W19.XXXA Unspecified fall, initial encounter; Y93.9 Activity, unspecified; Y92.9 Unspecified place or not applicable; Y99.9 Unspecified external cause status; I48.91 Unspecified atrial fibrillation; Z20.822 Contact with and (suspected) exposure to COVID-19; R65.20 Severe sepsis without septic shock; E11.65 Type 2 diabetes mellitus with hyperglycemia; Z88.0 Allergy status to penicillin
CPT/HCPCS: 0241U; 36415; 70450; 70551; 71045; 71260; 72125; 73130; 73564; 74177; 80048; 80053; 80076; 80307; 80320; 81001; 81025; 82140; 82272; 82550; 82607; 82746; 82947; 83605; 83690; 83735; 84484; 85025; 85027; 85610; 87040; 93005; 93306; 93971; 95816; 96365; 96375; 97116; 97162; 97530; 99285; J0456; J0696; J1650; J1885; J2060; Q9967

== ENCOUNTER 2021-01-13 06:44 | Outpatient (REF) | payer OTHER, MEDICAID, SELFPAY ==
[2021-01-13 07:25] LABS: Hematocrit 36.3 % (37-47); Hemoglobin 12.8 g/dl (12.0-16.0); Mean Corpuscular HGB Conc 35.3 g/dl (31.0-35.0); Mean Corpuscular Hemoglobin 32.8 pg (27.0-33.0); Mean Corpuscular Volume 93.1 fL (80-98); Platelet Count 190 X10*3/uL (160-400); Red Cell Distribution Width 12.3 % (11.0-16.0); White Blood Count 7.3 X10*3/uL (4.8-10.8)
[2021-01-13 07:29] LABS: Alanine Aminotransferase 26 U/L (0-31); Albumin Level 3.6 g/dL (3.5-5.0); Alkaline Phosphatase 57 U/L (39-117); Anion Gap 14 (12-20); Aspartate Amino Transferase 21 U/L (5-31); Blood Urea Nitrogen 20 mg/dL (9-16); Calcium 8.9 mg/dL (8.4-10.2); Carbon Dioxide 27 mmol/L (22-29); Chloride 103 mmol/L (96-108); Estimated Glomerular Filt Rate 58; Glucose Random 138 mg/dL (60-115); Potassium 4.4 mmol/L (3.3-5.1); Sodium 140 mmol/L (135-145); Total Protein 6.1 g/dL (6.5-8.0)
== END 2021-01-13 06:45 | disposition home or self-care (01) ==
LOC: HO.MMNH1L 06:44
PROVIDERS: Visit Provider Family Medicine
DX: A41.9 Sepsis, unspecified organism (principal); R55 Syncope and collapse
CPT/HCPCS: 36415; 80053; 85027

== ENCOUNTER 2021-01-19 05:00 | Outpatient (REF) | payer OTHER, MEDICAID, SELFPAY ==
[2021-01-19 07:00] LABS: Hematocrit 37.2 % (37-47); Mean Corpuscular HGB Conc 34.9 g/dl (31.0-35.0); Mean Corpuscular Hemoglobin 32.7 pg (27.0-33.0); Mean Corpuscular Volume 93.5 fL (80-98); Mean Platelet Volume 11.2 fL (9.4-12.3); Platelet Count 171 X10*3/uL (160-400); Red Blood Count 3.98 X10*6/uL (4.20-5.50); Red Cell Distribution Width 12.3 % (11.0-16.0); White Blood Count 7.4 X10*3/uL (4.8-10.8)
[2021-01-19 07:19] LABS: Anion Gap 15 (12-20); Blood Urea Nitrogen 19 mg/dL (9-16); Calcium 8.7 mg/dL (8.4-10.2); Carbon Dioxide 24 mmol/L (22-29); Chloride 102 mmol/L (96-108); Estimated Glomerular Filt Rate 57; Glucose Random 142 mg/dL (60-115); Sodium 137 mmol/L (135-145)
== END 2021-01-19 05:01 | disposition home or self-care (01) ==
LOC: HO.MMNH1L 05:00
PROVIDERS: Visit Provider Family Medicine
DX: A41.9 Sepsis, unspecified organism (principal); R55 Syncope and collapse
CPT/HCPCS: 36415; 80048; 85027

== ENCOUNTER 2021-01-26 12:53 | Outpatient (REF) | payer OTHER, MEDICAID, SELFPAY ==
[2021-01-26 08:22] LABS: Hematocrit 36.9 % (37-47); Hemoglobin 12.6 g/dl (12.0-16.0); Mean Corpuscular HGB Conc 34.1 g/dl (31.0-35.0); Mean Corpuscular Hemoglobin 32.2 pg (27.0-33.0); Mean Corpuscular Volume 94.4 fL (80-98); Mean Platelet Volume 11.3 fL (9.4-12.3); Platelet Count 158 X10*3/uL (160-400); Red Blood Count 3.91 X10*6/uL (4.20-5.50); Red Cell Distribution Width 12.6 % (11.0-16.0); White Blood Count 6.4 X10*3/uL (4.8-10.8)
[2021-01-26 09:21] LABS: Anion Gap 15 (12-20); Blood Urea Nitrogen 17 mg/dL (9-16); Calcium 8.8 mg/dL (8.4-10.2); Carbon Dioxide 24 mmol/L (22-29); Chloride 104 mmol/L (96-108); Estimated Glomerular Filt Rate 54; Glucose Random 105 mg/dL (60-115); Potassium 4.5 mmol/L (3.3-5.1); Sodium 138 mmol/L (135-145)
== END 2021-01-26 12:54 | disposition home or self-care (01) ==
LOC: HO.MMNH1L 12:53
PROVIDERS: Visit Provider Family Medicine
DX: A41.9 Sepsis, unspecified organism (principal); R55 Syncope and collapse
CPT/HCPCS: 36415; 80048; 85027

== ENCOUNTER 2021-02-02 06:47 | Outpatient (REF) | payer OTHER, MEDICAID, SELFPAY | END 2021-02-02 06:48 | disposition home or self-care (01) | LOC: HO.MMNH1L 06:47 | PROVIDERS: Visit Provider Family Medicine | DX: Z13.89 Encounter for screening for other disorder (principal) ==

== ENCOUNTER 2021-02-23 13:29 | Outpatient (REF) | payer OTHER, MEDICAID, SELFPAY | END 2021-02-23 13:30 | disposition home or self-care (01) | LOC: HO.HAP 13:29 | PROVIDERS: Visit Provider Internal Medicine | DX: Z13.89 Encounter for screening for other disorder (principal) ==

== ENCOUNTER 2021-05-12 15:04 | Outpatient (REF) | payer MEDICARE, MEDICAID, SELFPAY ==
--- NOTE | 2021-05-13 09:57 | MHC.AU.P13 ---
Hearing Instrument Problem Date of Visit: 05/13/21 Right Ear: Bridal Service Sales And Management: [employer] Model: BOLERO B50-P Serial Number: [id number] Repair Warranty: 06/07/2021 ORIGINAL WARRANTY Loss and Damage Warranty: 06/07/2021 ORIGINAL WARRANTY Battery Size: 13 Color: BEIGE Tubing: #2 SLIM TUBE Type of Mold: SLIM TIP #[id number] WARRANTY EXPIRES 01/25/2019 Dispensed By: [facility] Date of Fittin03/24/2018 Left Ear: Bridal Service Sales And Management: [employer] Model: BOLERO B50-P Serial Number: [id number] Repair Warranty: 06/07/2021 ORIGINAL WARRANTY Loss and Damage Warranty: 06/07/2021 ORIGINAL WARRANTY Battery Size: 13 Color: BEIGE Tubing: #2 SLIM TUBE Type of Mold: SLIM TIP #[id number] Dispensed By: [facility] Date of Fittin03/24/2018 Follow-Up Summary: Right hearing aid dropped off with note earmold cracked. Faxed new slim tip order to [employer] using scan on file. Verified insurance and Sima confirms plan will now cover. Recommendations: Recommendations: Patient will be contacted when materials have arrived. Signature: Provider: MIGUEL Rizzo-HIS
== END 2021-05-12 15:05 | disposition home or self-care (01) ==
LOC: HO.HAP 15:04
PROVIDERS: Visit Provider Internal Medicine
DX: Z13.89 Encounter for screening for other disorder (principal)

== ENCOUNTER 2021-05-25 15:56 | Outpatient (REF) | payer MEDICARE, MEDICAID, SELFPAY | END 2021-05-25 15:57 | disposition home or self-care (01) | LOC: HO.HAP 15:56 | PROVIDERS: Visit Provider Internal Medicine | DX: Z46.1 Encounter for fitting and adjustment of hearing aid (principal); H90.6 Mixed conductive and sensorineural hearing loss, bilateral | CPT/HCPCS: V5264 ==

== ENCOUNTER 2021-06-02 15:58 | Outpatient (REF) | payer MEDICARE, MEDICAID, SELFPAY | END 2021-06-02 15:59 | disposition home or self-care (01) | LOC: HO.HAP 15:58 | PROVIDERS: PCP Internal Medicine; Visit Provider Internal Medicine | DX: Z13.89 Encounter for screening for other disorder (principal) ==

== ENCOUNTER 2021-06-12 09:49 | Outpatient (REF) | payer MEDICARE, MEDICAID, SELFPAY | END 2021-06-12 09:50 | disposition home or self-care (01) | LOC: HO.HAP 09:49 | PROVIDERS: Visit Provider Internal Medicine | DX: Z46.1 Encounter for fitting and adjustment of hearing aid (principal); H90.6 Mixed conductive and sensorineural hearing loss, bilateral | CPT/HCPCS: V5264 ==

== ENCOUNTER 2021-08-12 09:54 | Outpatient (REF) | payer MEDICARE, MEDICAID, SELFPAY ==
--- NOTE | 2021-08-12 10:24 | MHC.AU.P13 ---
Hearing Instrument Problem Date of Visit: 08/12/21 Right Ear: Occupational Medicine Specialist: [employer] Model: BOLERO B50-P Serial Number: [id number] Repair Warranty: 06/07/2021 ORIGINAL WARRANTY Loss and Damage Warranty: 06/07/2021 ORIGINAL WARRANTY Battery Size: 13 Color: BEIGE Tubing: #2 SLIM TUBE Type of Mold: SLIM TIP #[id number] WARRANTY EXPIRES 01/25/2019 Dispensed By: [facility] Date of Fittin03/24/2018 Left Ear: Occupational Medicine Specialist: [employer] Model: BOLERO B50-P Serial Number: [id number] Repair Warranty: 06/07/2021 ORIGINAL WARRANTY Loss and Damage Warranty: 06/07/2021 ORIGINAL WARRANTY Battery Size: 13 Color: BEIGE Tubing: #2 SLIM TUBE Type of Mold: SLIM TIP #[id number] Dispensed By: [facility] Date of Fittin03/24/2018 Follow-Up Summary: Patient's health care proxy dropped off right hearing aid - broken volume control, battery stuck in hearing aid - sent to [email or web address] for repair with one year warranty - bill [facility] when in. Slim tip cleaned and in repair drawer. Recommendations: Recommendations: Patient will be contacted when materials have arrived. Diagnosis Code(s): Primary Diagnosis: H90.6 Mixed Hearing Loss, Bilateral Signature: Provider: MIGUEL Rizzo-HIS
== END 2021-08-12 09:55 | disposition home or self-care (01) ==
LOC: HO.HAP 09:54
PROVIDERS: Visit Provider Internal Medicine
DX: Z13.89 Encounter for screening for other disorder (principal)

== ENCOUNTER 2021-08-25 09:45 | Outpatient (REF) | payer MEDICARE, MEDICAID, SELFPAY | END 2021-08-25 09:46 | disposition home or self-care (01) | LOC: HO.HAP 09:45 | PROVIDERS: Visit Provider Internal Medicine | DX: Z46.1 Encounter for fitting and adjustment of hearing aid (principal); H90.6 Mixed conductive and sensorineural hearing loss, bilateral | CPT/HCPCS: V5014 ==

== ENCOUNTER 2021-09-25 12:01 | Outpatient (REF) | payer MEDICARE, MEDICAID, SELFPAY ==
--- NOTE | 2021-09-28 09:27 | MHC.AU.AHA ---
Adult Audiological Evaluation Date of Visit: 09/25/21 Risk Management Specialist Used: Not Applicable Reason for Appointment: Audiologic re-evaluation - Patient is now at [facility] and has had a significant change in hearing. The left aid was recently lost. Current hearing aids are no longer under warranty and patient needs replacement(s). Previous Hearing Test Results: 11/25/2017 [facility] Right Ear - Mild to moderate mixed hearing loss with 72% speech understanding at 80 dB HL Left Ear - Mild to severe mixed hearing loss with 96% speech understanding at 80 dB HL Medical History: Medical History: Diabetes, Paroxysmal Atria Fibrillation, Dysphasia, Recent fracture of right femur Medication List: Not available Hearing Instrument History- Right Ear: Flash Drier Operator: [employer] Model: NEXAGE B50-P Serial Number: [id number] Battery Size: 13 Repair Warranty: 06/07/2021 ORIGINAL WARRANTY Loss and Damage Warranty: 06/07/2021 ORIGINAL WARRANTY Dispensed By: [facility] Date of Fittin03/24/2018 Hearing Instrument History- Left Ear: Flash Drier Operator: [employer] Model: NEXAGE B50-P Serial Number: [id number] Battery Size: 13 Warranty: 06/07/2021 ORIGINAL WARRANTY Loss and Damage Warranty: 06/07/2021 ORIGINAL WARRANTY Dispensed By: [facility] Date of Fittin03/24/2018 Otoscopy: Right Ear: Jenise-large cracked area w/ irritation & occluding cerumen Left Ear: Small amount of non-occluding cerumen Tympanometry: Not performed at today's visit Hearing Evaluation: Transducer(s) Used: Insert Earphones Bone Conduction Method: Conventional Audiometry Stimuli Used: Pure Tones Right Ear: Description of Hearing: Moderately-severe to severe mixed hearing loss Left Ear: Description of Hearing: Moderate mixed loss at 250 and 8000 Hz with remaining frequencies in the moderately-severe to severe mixed hearing loss range Speech Recognition Threshold (SRT): Method Used: Monitored Live Voice Stimuli Used: Spondee Words Right Ear: 70 dB HL Left Ear: 55 dB HL Word Discrimination: Method: Recorded Lists Word Lists Used: NU-6 Right Ear: 52% speech understanding at 90 dB HL Left Ear: 60% at 80 dB HL Most Comfortable Level (MCL): Right Ear: 90 dB HL Left Ear: 80 dB HL Comparison: Compared to most recent evaluation: 03-03 dB overall decrease with approximate 20-30% decrease in speech discrimination for both ears. Recommendations: - Referral to Ear, Nose, and Throat is recommended for treatment of the right jenise and cerumen removal. - Will obtain prior authorization from insurance for replacement hearing aids. Due to the significant change in hearing, speech discrimination, and medical changes, Rechargeable [employer] Audeo P aids with power integrated c-shell are recommended. Will use impressions on file with [employer] to make the custom c-shells. - Medical clearance for new hearing aids is required from a physician. Faxed to PCP - Audiological re-evaluation in one year. Will send a reminder card. Diagnosis: Primary Diagnosis: H90.6 Mixed Hearing Loss, Bilateral Services Performed: Comprehensive Audiological Evaluation (CPT 77248) Signature: Provider: Stanford Whitaker, CCC-A
--- NOTE | 2021-09-28 09:36 | MHC.AU.MED ---
Medical Clearance for Hearing Instrumentation Date: 09/28/21 Patient Name: Willy Kingston Date of : 1955 Primary Care Provider: Referring Provider: Miguel Angel Roland MD We have seen your patient on 09/28/21 and have determined that they are a candidate for amplification (See accompanying report). Specifically, they would benefit from: Hearing aid use in both ears There is a statute that addresses Medical Evaluation Requirements prior to fitting a patient with a hearing aid. According to [place] statute 265 CMR:6.03(1), (a) General. Except as provided in 265 CMR 6.03(1)(b), a intervention teacher shall not sell a hearing aid unless the prospective user has presented to the intervention teacher a written statement signed by a licensed physician that states that the patient's hearing loss has been medically evaluated and the patient may be considered a candidate for a hearing aid. The medical evaluation must have taken place within the preceding six months. Please note: Due to the [place] Statute referenced above, we cannot accept a signature other than that of a licensed physician. STRAIGHT LINE PRESS SETTER and PA signatures cannot be accepted. I am in agreement with the above recommendation. There is no medical contraindication for hearing instrumentation. Physician Signature Date Physician Name (Printed)
== END 2021-09-25 12:02 | disposition home or self-care (01) ==
LOC: HO.SH 12:01
PROVIDERS: Visit Provider Internal Medicine
DX: H90.6 Mixed conductive and sensorineural hearing loss, bilateral (principal)
CPT/HCPCS: 92557

== ENCOUNTER 2021-11-13 12:21 | Outpatient (REF) | payer MEDICARE, MEDICAID, SELFPAY | END 2021-11-13 12:22 | disposition home or self-care (01) | LOC: HO.HAP 12:21 | PROVIDERS: Visit Provider Internal Medicine | DX: Z46.1 Encounter for fitting and adjustment of hearing aid (principal); H90.6 Mixed conductive and sensorineural hearing loss, bilateral | CPT/HCPCS: V5011; V5020; V5160; V5261; V5264 ==

== ENCOUNTER 2021-12-01 11:58 | Outpatient (REF) | payer MEDICARE, MEDICAID, SELFPAY ==
--- NOTE | 2021-12-01 13:10 | MHC.AU.HFU ---
Hearing Instrument Follow-Up- Binaural Date of Visit: 12/01/21 Right Ear: Content Management Specialist: [employer] Model: Audeo P 70-R Serial Number: [id number] Repair Warranty: 01/14/2025 Loss and Damage Warranty: 01/14/2025 Battery Size: Rechargeable Color: BEIGE Development Analyst: #1 Power Type of Mold: Canal Lock C-Shell #[id number] warranty 03/05/2022 Type of Wax Guard: CeruStop Dispensed By: [facility] Date of Fittin11/13/2021 Left Ear: Content Management Specialist: [employer] Model: Audeo P 70-R Serial Number: [id number] Repair Warranty: 01/14/2025 Loss and Damage Warranty: 01/14/2025 Battery Size: Rechargeable Color: BEIGE Development Analyst: #1 Power Type of Mold: Canal Lock C-Shell #[id number] warranty 03/05/2022 Type of Wax Guard: CeruStop Dispensed By: [facility] Date of Fittin11/13/2021 Follow-Up Summary: Patient reports she needs to increase the volume, but then can hear people and staff of the long term who are in the hallways or other rooms too loud. Also the right c-shell is causing a sore on the inside of canal just below the helix area. Right ear was cleaned by physician and she has used Betamethasone ointment for a few days. Ground down the area and advised patient to try to leave the aid out of the ear and use the ointment for a few days to allow area to heal. Changed both wax guards with patient noting improved sound quality. Increased overall gain of both aids and used auto fine tuning to decrease loud distant sounds 2 clicks. Reviewed volume control use and how to manually turn the aids off and on. Scheduled a 2 week F/U appointment. Diagnosis Code(s): Primary Diagnosis: H90.6 Mixed Hearing Loss, Bilateral Signature:Provider: Stanford Whitaker, [facility]
== END 2021-12-01 11:59 | disposition home or self-care (01) ==
LOC: HO.HAP 11:58
PROVIDERS: Visit Provider Internal Medicine
DX: Z13.89 Encounter for screening for other disorder (principal)

== ENCOUNTER 2021-12-15 12:06 | Outpatient (REF) | payer MEDICARE, MEDICAID, SELFPAY ==
--- NOTE | 2021-12-15 13:29 | MHC.AU.FUR ---
Hearing Instrument Follow-Up Date of Visit: 12/15/21 Right Ear: Supervisor Feed Mill: [employer] Model: Audeo P 70-R Serial Number: [id number] Repair Warranty: 01/14/2025 Loss and Damage Warranty: 01/14/2025 Battery Size: Rechargeable Color: BEIGE Traveling Electrician: #1 Power Type of Mold: Canal Lock C-Shell #[id number] warranty 03/05/2022 Type of Wax Guard: CeruStop Dispensed By: [facility] Date of Fittin11/13/2021 Follow-Up Summary: Right c-shell continues to cause sore. Took new impression of the right ear without complication for remake. Tried to grind down the c-shell more, but shell cracked. Placed on #1 power shipping weigher with large power dome on aid. DID NOT CHANGE ANY ACOUSTIC PARAMETERS TODAY. Recommendations (Other): Call Wendi Khoa [phone] when remake received to schedule appointment. JUST PLACE NEW C-SHELL ON AID. NO PROGRAMMING CHANGES NEEDED. ONLY FEEDBACK TEST IF FEEDBACK IS A PROBLEM. Diagnosis Code(s): Primary Diagnosis: H90.6 Mixed Hearing Loss, Bilateral Signature: Provider: Inocencia Whitaker, [facility]
== END 2021-12-15 12:07 | disposition home or self-care (01) ==
LOC: HO.HAP 12:06
PROVIDERS: Visit Provider Internal Medicine
DX: Z13.89 Encounter for screening for other disorder (principal)

== ENCOUNTER 2021-12-29 11:48 | Outpatient (REF) | payer MEDICARE, MEDICAID, SELFPAY | END 2021-12-29 11:49 | disposition home or self-care (01) | LOC: HO.HAP 11:48 | PROVIDERS: Visit Provider Internal Medicine | DX: Z13.89 Encounter for screening for other disorder (principal) ==

== ENCOUNTER 2022-02-09 14:00 | Outpatient (REF) | payer SELFPAY | END 2022-02-09 14:01 | disposition home or self-care (01) | LOC: HO.HAP 14:00 | PROVIDERS: Visit Provider Internal Medicine | DX: Z46.1 Encounter for fitting and adjustment of hearing aid (principal); H90.3 Sensorineural hearing loss, bilateral | CPT/HCPCS: V5267 ==

== ENCOUNTER 2022-02-15 13:48 | Outpatient (REF) | payer SELFPAY | END 2022-02-15 13:49 | disposition home or self-care (01) | LOC: HO.HAP 13:48 | PROVIDERS: Visit Provider Internal Medicine | DX: Z46.1 Encounter for fitting and adjustment of hearing aid (principal); H90.3 Sensorineural hearing loss, bilateral | CPT/HCPCS: V5267 ==

== ENCOUNTER 2022-02-25 14:23 | Outpatient (REF) | payer MEDICARE, MEDICAID, SELFPAY | END 2022-02-25 14:24 | disposition home or self-care (01) | LOC: HO.HAP 14:23 | PROVIDERS: Visit Provider Internal Medicine | DX: Z13.89 Encounter for screening for other disorder (principal) ==

== ENCOUNTER 2022-03-26 11:06 | Outpatient (REF) | payer MEDICARE, MEDICAID, SELFPAY | END 2022-03-26 11:07 | disposition home or self-care (01) | LOC: HO.HAP 11:06 | PROVIDERS: Visit Provider Internal Medicine | DX: Z13.89 Encounter for screening for other disorder (principal) ==

== ENCOUNTER 2022-11-11 12:48 | Outpatient (REF) | payer MEDICARE, MEDICAID, SELFPAY ==
--- NOTE | 2022-11-12 10:04 | MHC.AU.HA3 ---
Hearing Instrument Follow-Up- Binaural Date of Visit: 11/11/22 Right Ear: Anderson, , Color, Serial Number: Christi Hahn P70-R, #[id number], Rhonda Musical String Maker Repair Warranty: 01/14/2025 Musical String Maker Loss and Damage Warranty: 01/14/2025 Battery Size: Rechargeable Generating Station Mechanic/Slim Tube: #1 Power Earmold/Dome/CShell/SlimTip:Canal Lock C-Shell #[id number] warranty 03/05/2022 Type of Wax Guard: CeruStop Dispensed By: [facility], Date of Fittin11/13/2021 Left Ear: Anderson, , Color, Serial Number: Christi Hahn P70-R, #[id number], Bejennifer Musical String Maker Repair Warranty: 01/14/2025 Musical String Maker Loss and Damage Warranty: 01/14/2025 [facility] Service Plan: Battery Size: Rechargeable Generating Station Mechanic/Slim Tube: #1 Power Earmold/Dome/CShell/SlimTip: Canal Lock C-Shell #[id number] warranty 05/04/2022 Type of Wax Guard: CeruStop Dispensed By: [facility], Date of Fittin11/13/2021 Follow-Up Summary: Patient reports that when she went to change the wax guard in her left hearing aid, she realized the wax guard had fallen out at some point and wax was deep inside the ear nose and throat specialist. It has been sounding weak since then. She also reports that she is unable to clean the vent hole in the right cShell, as the green wire seems to get stuck group home. Both hearing aids were inspected. Some wax was removed from the left cShell, which improved the sound; however, there is still a significant amount of wax that is too deep to be removed. Even though the sound is improved, it still has a slight muffled quality. The cShell is out of warranty. A copy of the current cShell will be requested from [employer]. In the right cShell, there was hardened wax in the vent hole that was preventing the green wire from going through. The occluding wax was able to be removed, and the vent hole was cleaned. The right hearing aid is amplifying clearly. Patient was given both hearing aids and cShells back. Otoscopy performed- partially occluding cerumen bilaterally. Patient reports she will make an appointment with her physician to have it removed. Recommendations: Patient will be contacted when the new left cShell has arrived. Her new phone number is [phone]. Diagnosis Code(s): Primary Diagnosis: H90.6 Mixed Hearing Loss, Bilateral Signature: Provider: Hai Phelan, ADOL[facility]-A
== END 2022-11-11 12:49 | disposition home or self-care (01) ==
LOC: HO.HAP 12:48
PROVIDERS: Visit Provider Internal Medicine
DX: Z13.89 Encounter for screening for other disorder (principal)

== ENCOUNTER 2022-12-10 12:24 | Outpatient (REF) | payer SELFPAY ==
--- NOTE | 2022-12-13 08:02 | MHC.AU.HFU ---
Hearing Instrument Follow-Up- Binaural Date of Visit: 12/10/22 Right Ear: Conference Translator: [employer] Audeo P70-R, #[id number], Beige Repair Warranty: 01/14/2025 Loss and Damage Warranty: 01/14/2025 Battery Size: Rechargeable Color: BEIGE Eyelet Machine Operator: #1 Power Type of Mold: Canal Lock C-Shell #[id number] warranty 03/05/2022 Type of Wax Guard: CeruStop Dispensed By: [facility] Date of Fittin11/13/2021 Left Ear: Conference Translator: [employer]ak Audeo P70-R, #[id number], Beige Repair Warranty: 01/14/2025 Loss and Damage Warranty: 01/14/2025 Battery Size: Rechargeable Color: BEIGE Eyelet Machine Operator: #1 Power Type of Mold: Canal Lock C-Shell Serial #[id number] 02/15/2023 Type of Wax Guard: CeruStop Dispensed By: [facility] Date of Fittin11/13/2021 Follow-Up Summary: Fit the new left c-shell with patient reporting comfortable fit and sound while in office. Patient reports she is not able to increase the volume of aids enough. The right aid is reaching the limits of gain so when increasing the volume, both will only increase by one step. Confirmed this with Pio in [facility]. Will order a new right UP Canal Lock C-Shell using scan on file. When received call patient at [phone] to schedule 1/2 hour appointment. Diagnosis Code(s):Primary Diagnosis: H90.3 Bilateral Sensorineural Hearing Loss Services Performed:Package of Wax Guards: 1 Signature:Provider: Hai Whitaker, [facility]
== END 2022-12-10 12:25 | disposition home or self-care (01) ==
LOC: HO.HAP 12:24
PROVIDERS: Visit Provider Internal Medicine
DX: Z46.1 Encounter for fitting and adjustment of hearing aid (principal); H90.3 Sensorineural hearing loss, bilateral
CPT/HCPCS: V5267

== ENCOUNTER 2022-12-10 16:21 | Outpatient (REF) | payer MEDICARE, MEDICAID, SELFPAY | END 2022-12-10 16:22 | disposition home or self-care (01) | LOC: HO.HAP 16:21 | PROVIDERS: Visit Provider Internal Medicine | DX: Z46.1 Encounter for fitting and adjustment of hearing aid (principal); H90.3 Sensorineural hearing loss, bilateral | CPT/HCPCS: V5264 ==

== ENCOUNTER 2023-03-23 12:58 | Outpatient (REF) | payer MEDICARE, MEDICAID, SELFPAY | END 2023-03-23 12:59 | disposition home or self-care (01) | LOC: HO.HAP 12:58 | PROVIDERS: Visit Provider Internal Medicine | DX: Z46.1 Encounter for fitting and adjustment of hearing aid (principal); H90.3 Sensorineural hearing loss, bilateral | CPT/HCPCS: V5020; V5264 ==

== ENCOUNTER 2023-03-23 13:10 | Outpatient (REF) | payer SELFPAY | END 2023-03-23 13:11 | disposition home or self-care (01) | LOC: HO.HAP 13:10 | PROVIDERS: Visit Provider Internal Medicine | DX: Z46.1 Encounter for fitting and adjustment of hearing aid (principal); H90.3 Sensorineural hearing loss, bilateral | CPT/HCPCS: V5267 ==

== ENCOUNTER 2023-06-20 10:54 | Outpatient (REF) | payer MEDICARE, MEDICAID, SELFPAY | END 2023-06-20 10:55 | disposition home or self-care (01) | LOC: HO.HAP 10:54 | PROVIDERS: Visit Provider Internal Medicine | DX: Z13.89 Encounter for screening for other disorder (principal) ==

== ENCOUNTER 2023-06-30 12:08 | Outpatient (REF) | payer MEDICARE, MEDICAID, SELFPAY | END 2023-06-30 12:09 | disposition home or self-care (01) | LOC: HO.HAP 12:08 | PROVIDERS: Visit Provider Internal Medicine | DX: Z13.89 Encounter for screening for other disorder (principal) ==

== ENCOUNTER 2023-09-07 11:51 | Outpatient (REF) | payer MEDICARE, MEDICAID, SELFPAY | END 2023-09-07 11:52 | disposition home or self-care (01) | LOC: HO.HAP 11:51 | PROVIDERS: Visit Provider Internal Medicine | DX: Z13.89 Encounter for screening for other disorder (principal) ==

== ENCOUNTER 2023-09-08 13:27 | Outpatient (REF) | payer MEDICARE, MEDICAID, SELFPAY | END 2023-09-08 13:28 | disposition home or self-care (01) | LOC: HO.HAP 13:27 | PROVIDERS: Visit Provider Internal Medicine | DX: Z13.89 Encounter for screening for other disorder (principal) ==

== ENCOUNTER 2024-08-30 09:06 | Outpatient (REF) | payer SELFPAY | END 2024-08-30 09:07 | disposition home or self-care (01) | LOC: HO.HAP 09:06 | PROVIDERS: Visit Provider Internal Medicine | DX: Z46.1 Encounter for fitting and adjustment of hearing aid (principal); H90.3 Sensorineural hearing loss, bilateral | CPT/HCPCS: V5267 ==

== ENCOUNTER 2024-10-26 10:44 | Outpatient (REF) | payer MEDICARE, MEDICAID, SELFPAY ==
--- NOTE | 2024-10-26 12:50 | MHC.AU.HA3 ---
Hearing Instrument Follow-Up- Binaural Date of Visit: 10/26/24 Patent Agent Used: Right Ear: Anderson, Model, Color, Serial Number: Christi Hahn P70-R, #[id number], Rhonda Furniture Builder Repair Warranty: 01/14/2025 Furniture Builder Loss and Damage Warranty: 01/14/2025 [facility] Service Plan: Battery Size: Rechargeable Residential Electrician/Slim Tube: #1 Power Earmold/Dome/CShell/SlimTip:Canal Lock C-Shell #[id number] warranty 03/21/2023 Type of Wax Guard: CeruStop Dispensed By: [facility] Date of Fittin11/13/2021 Left Ear: Anderson, Model, Color, Serial Number: Christi Hahn P70-R, #[id number], Bejennifer Furniture Builder Repair Warranty: 01/14/2025 Furniture Builder Loss and Damage Warranty: 01/14/2025 [facility] Service Plan: Battery Size: Rechargeable Residential Electrician/Slim Tube: #1 Power Earmold/Dome/CShell/SlimTip: Canal Lock C-Shell Serial #[id number] 02/15/2023 Type of Wax Guard: CeruStop Dispensed By: [facility] Date of Fittin11/13/2021 Follow-Up Summary: Willy is here with a staff member from her [facility], stating her hearing aids haven't worked correctly for some time, generally upset today. Has not been happy that her aids were only cleaned when dropped off in the past. Today states her left one shuts off after a few hours of use and her wax guard will not stay in. Also asked that I look at her busgirl and two charging cables she brought in. Right hearing aid cleaned, debris removed from mics, and wax guard changed; listening check ok. Left hearing aid cleaned, debris removed from mics, but speaker is loose in c-shell and will not hold in a wax guard, sounds very weak. Sending left device for repair due to question of battery drain and ordering new c-shell. Cleaned busgirl. Gave patient new cable/wall plug as she states the cord it came with does not fit in busgirl tightly (confirmed) and has been using a different longer cord. States she will probably continue using longer cord, though I advised using the one from the portfolio architect as there have been previous, known issues with charging cords/wall plugs and [employer] chargers. Patient expressed concern that we will not call her when her left aid is ready, assured her we will do our best to contact her as fast as possible once it is back and programmed. Otoscopy shows small amount of nonoccluding wax bilaterally. Recommendations: Recommendations: Patient will be contacted when materials have arrived. Diagnosis Code(s): Primary Diagnosis: H90.6 Mixed Hearing Loss, Bilateral Signature: Provider: Stanford Gallardo, CCC-A
== END 2024-10-26 10:45 | disposition home or self-care (01) ==
LOC: HO.HAP 10:44
PROVIDERS: Visit Provider Internal Medicine
DX: Z46.1 Encounter for fitting and adjustment of hearing aid (principal); H90.3 Sensorineural hearing loss, bilateral
CPT/HCPCS: 92593; 99499

== ENCOUNTER 2025-04-26 10:19 | Outpatient (REF) | payer MEDICARE, MEDICAID, SELFPAY ==
--- OUTSIDE RECORDS SUMMARY | 2025-04-26 10:40 | XMS_ITS | Clinical Summary ---
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 Active loperamide (IMODIUM) 2 mg capsule Take 1 Capsule by mouth every 6 hours as needed. Active magnesium hydroxide (MILK OF MAGNESIA) 400 mg/5 mL suspension Take by mouth daily as needed. Active zolpidem (AMBIEN) 5 mg tablet Take by mouth at bedtime as needed. Active atorvastatin (LIPITOR) 20 mg tablet Take 1 Tablet by mouth daily. Active magnesium aspart,citrate, oxide (Triple Magnesium Complex) 400 mg magnesium capsule Take 1 Tablet by mouth daily. Active metoprolol tartrate (LOPRESSOR) 100 mg tablet TAKE ONE TABLET BY MOUTH TWICE A DAY 03/10/2021 Active metFORMIN (GLUCOPHAGE) 500 mg tablet Take 1 tablet twice daily with meals. 03/10/2021 Active apixaban (ELIQUIS) 5 mg tablet Take 5 mg by mouth 2 times daily. 01/02/2021 Active glucose blood test strip Test tid 06/23/2020 Active lancets lancets Test tid 06/23/2020 Act hector blood-glucose meter misc Test tid 06/23/2020 Active FREESTYLE LANCETS MISC Test bid 10/24/2018 Active multivitamin (MULTI-DAY ORAL) 1 tablet daily Active Active Problems Problem Noted Date Diagnosed Date Syncope 02/18/2021 Overview (10/11/2024): Last Assessment & Plan: The patient has had no recurrence. If she does have a syncopal episode. It may indicate the need for a pacemaker. Certainly any symptoms of concern should be reported to us. Atrial fibrillation (CMS/HCC V24, CMS/HCC V28) 0 02/12/2021 Overview (10/11/2024): -Incidentally diagnosed during Dr. Rodriguez's initial visit with her on 01/02/2021 on routine EKG. though patient reports that this may have been diagnosed in 2017-regardless has been in persistent A-fib since around 2020 -Holter monitor on 02/05/2021 showed atrial fibrillation throughout the monitoring period, average heart rate 72 bpm with a peak of only 114 bpm, occasional PVCs and rare ventricular couplets, one 8 beat ventricular run, no symptoms-in my review of the 8 beat run, it is quite slow and I hesitated to call with nonsustained VT as it could have been atrial flutter with aberrancy-though this would be unusual given chronic A. fib Last Assessment & Plan: Continue current Eliquis 5 twice daily. Continue metoprolol 100 mg twice daily. WANG (dyspnea on exertion) 01/01/2021 Overview (10/11/2024): -Likely multifactorial-mostly pulmonary in nature, also related to deconditioning, obesity -During hospitalization in March 2021 she had an updated echocardiogram that confirmed EF 65 to 75% with no wall motion abnormalities left atrium was severely dilated. No significant aortic stenosis, mild aortic regurgitation, trivial MR right ventricle poorly visualized, but normal in size. - Dr Rodriguez has tried to order outpatient studies and the patient never seems to make it to these-possibly related to transportation issues at the time-for example, a nuclear stress test was ordered but never performed as the patient no showed in 2020 Last Assessment & Plan: At this point, her dyspnea very much sounds like deconditioning and there are no alarming features on history or on exam to indicate high-grade coronary artery disease or overt heart failure as a cause. Given that she is so limited with her functional capacity at baseline, I do not feel strongly about pursuing these tests as they will not roving changer and create unnecessary anxiety and possible false positives leading to unnecessary additional testing. Continue medical management. She is centrally euvolemic on exam and therefore I do not feel strongly about loop diuretic therapy. Continue rate control for A-fib. Allergic dermatitis 05/16/2018 Overview (10/11/2024): Last Assessment & Plan: No further therapy required. Continue daily skin barrier. Follow up prn or for AG in January. Perianal lesion 01/20/2018 Overview (10/11/2024): Last Assessment & Plan: Gentle soap like Dove for sensitive skin on the anal area and vulva. Rinse with shower head or soak at least once daily. Apply Vaseline to the anal area twice daily to protect skin. Return either to [facility] to have this evaluated again in ~6-8 weeks. If it is not resolved, may need to use another topical medication or biopsy to make sure not a cancer or precancerous lesion. Water wipes are ok spaingly, but no baby wipes Lymphedema 09/23/2017 Overview (10/11/2024): - Prior DVTs with distortion of venous and lymphatic architecture most likely the underlying cause - Recent venous ultrasound on 02/06/2024 showing no evidence of DVTs Last Assessment & Plan: Peripheral edema on exam today seems most consistent with just that- lymphedema and venous insufficiency that is longstanding. The patient apparently has tried loop diuretics in the past and finds that they do not help her. As mentioned above, she is centrally euvolemic on exam so I do not feel strongly about aggressive diuresis. However, should she start developing further complications such as venous ulcerations, would consider initiation of loop diuretics to better control edema and/or referral to vascular specialist. Continue venous wraps, low-sodium diet. Diabetes mellitus type 2 wit h neurological manifestations ([facility] V24, [facility] V28) 05/10/2017 Lumbar spondylolysis 10/17/2015 Kidney stone 07/10/2014 Overview (10/11/2024): 5mm on right with mild hydronephrosis Type 2 diabetes mellitus wit h cataract ([facility] V24, [facility] V28) 12/26/2012 Nuclear sclerosis 09/23/2011 Carpal tunnel syndrome 09/23/2011 Moderate cervical dysplasia, histologically conf irmed 05/08/2010 Overview (10/11/2024): Cone biopsy 2009 ROSA II. Normal follow up. Last Assessment & Plan: Counseled pt that she requires routine screening for 20 years from moderate to severe dysplasia. As such, she will have her next Pap with HPV testing in 2021 and will continue Q 5 years with HPV testing until age 74. Should continue to have yearly pelvic exams. She understood and agreed. Papanicolaou smear of cervix with high grade squamous intraepithelial lesion (HGSIL) 02/17/2010 Overview (10/11/2024): + ECC on colpo, Cone Biopsy 04/10/10 High cholesterol 02/13/2008 Overview (10/11/2024): Last Assessment & Plan: Continue current atorvastatin. Sciatica 12/08/2006 Hearing loss 11/01/2006 Overview (10/11/2024): IMO update Diverticulitis of colon 11/01/2006 Essential hypertension, benign 11/01/2006 Overview (10/11/2024): Last Assessment & Plan: Blood pressure appears very well controlled at 110/82. Continue beta-luigi. I would urge the patient to follow a low-sodium diet, and to be a part of any exercise programs that are within her capabilities. I have asked that blood pressures be periodically monitored to ensure stability. Encounters Date Type Department Care Team Description 03/19/2025 Telephone [facility] [address] [facility] [address] [place] [address] Kassandra Rodriguez MD Recall Appointment from Last 3 Months Immunizations Name Administration Dates Next Due H1N1 Inj Preservative Free 09/12/2009 Influenza Quadravalent, MDCK , 0.5ml, with preservative (Flucelvax) 6mo and older 06/23/2018 Influenza trivalent, 0.5mL, preservative free (Fluarix; FluLaval; Fluzone) ages 6mo and older (Afluria) 3 years and older 07/15/2019,06/10/2017,09/07/2016,2014,07/10/2014,07/10/2013,08/24/2012,1 10/20/2010,08/03/2010,07/13/2009, 007 Pneumococcal conjugate 13 va lent (Prevnar 13, PCV13) 2mo and older 11/04/2014 Td Tetanus diptheria (Tdvax) 7yo and older 10/10/2002 Tdap Tetanus diptheria acell ular pertussis (Boostrix; Adacel) 7yo and older 03/25/2014 Zoster Live 07/30/2014 Zoster recombinant (Shingrix ) 19yo and older 06/13/2018,03/07/2018 Surgical History Surgery Date Site/Laterality Comments OTHER SURGICAL HISTORY PROCEDURE: ---- OTHER ----; COMMENT: cyst left forearm removed OTHER SURGICAL HISTORY 04/10/10 PROCEDURE: NE CONIZATION CERVIX W/WO D&C RPR KNIFE/LASER COLONOSCOPY 05/22/15 PROCEDURE: HISTORICAL COLONOSCOPY; COMMENT: Colon polyp, diverticulosis, hemorrhoids Medical History Medical History Date Comments Unspecified hearing loss DX:Unsp ecified hearing loss Diverticulitis of colon (wit hout mention of hemorrhage)(562.11) DX:Diverticulitis of co katelyn (without mention of hemorrhage)(562.11) Other lymphedema 11/01/2006 DX:Other lymphe radha Historical Medical DX DX:Other a cute embolism veins Essential hypertension, benign D X:Essential hypertension, benign Other specified personal his tory presenting hazards to health(V15.89) DX:Other specifie d personal history presenting hazards to health(V15.89); COMMENT: HGSIL pap and S/P cone biopsy 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 Kidney stone 07/10/2014 DX:Kidney stone; COMMENT: 5mm on right with mild hydronephrosis Family History Medical History Relation Name Comments Colon cancer Aunt maternal 60's Other: MVA Brother 1992 Heart attack Father at 55 Colon cancer Maternal Grandfather 70 Arthritis Maternal Grandmother Diabetes Maternal Grandmother Arthritis Mother colon cancer Cataracts Mother colon cancer Colon cancer Mother colon cancer Hypertension Mother colon cancer Arthritis Sister Breast cancer Neg Hx Ovarian cancer Neg Hx Uterine cancer Neg Hx Relation Name Status Comments Aunt maternal 60's Brother Father Maternal Grandfather 70 Maternal Grandmother Mother colon cancer Sister Social History Tobacco Use Types Packs/Day Years Used Date Smoking Tobacco: Former Cigarettes Q uit: 10/15/1975 Smokeless Tobacco: Never Alcohol Use Standard Drinks/Week Comments No 0 (1 standard drink = 0.6 oz pur e alcohol) Comments Unknown Sex and Gender Information Value Date Recorded Sex Assigned at Not on file Legal Sex Female 4:43 AM EST Gender Identity Not on file Sexual Orientation Not on file Obstetrics History Last Filed Vital Signs Vital Sign Reading Time Taken Comments Blood Pressure 104/68 05/18/2024 10:50 AM EDT Pulse 67 05/18/2024 10:50 AM EDT Temperature - - Respiratory Rate - - Oxygen Saturation - - Inhaled Oxygen Concentration - - Weight - - Height - - Body Mass Index - - Plan of Treatment Health Maintenance Due Date Last Done Comments Diabetes: Annual Foot Exam 1964 Diabetes: Annual Retina Eye Exam 1965 Pneumococcal Vaccine: 50+ Years (2 of 2 - PPSV23) 12/30/2014 11/04/2014 Diabetes: Annual GFR (Glomerular Filtration Rate) 02/12/2022 02/12/2021 Colorectal Cancer Screening: Colonoscopy 09/12/2022 06/08/2015 Depression Screening 09/12/2022 Falls Risk Assessment 09/12/2022 Social Influencers of Health Screening 09/12/2022 Diabetes: Annual Urine Albumin-Creatinine Ratio (uACR) 09/22/2022 10/17/2020 Diabetes: Blood Sugar Control Test (HGBA1C) 09/22/2022 10/17/2020 Hypertension/CHF/CAD Annual BMP Blood Test 09/22/2022 02/12/2021 Breast Cancer Screening 03/05/2023 03/05/20 21, 02/02/2021, 11/27/2019, Additional history exists DTaP,Tdap,and Td Vaccines (3 - Td or Tdap) 03/25/2024 03/25/2014, 10/10/2002 COVID-19 Vaccine (3 - 2023- season) 2024 02/06/2021, 12/19/2020 Cholesterol Screening (Lipid Panel) 04/04/2025 04/04/2020 Influenza Vaccine (#1) 2025 , 06/23/2018, 06/10/2017, Additional history exists RSV Immunization Adult Patients (1 - 1-dose 75+ series) 2029 Osteoporosis Screening (Bone Density Screening) 12/19/2029 12/20/2019 Hepatitis C Screening Completed 09/23/2017 Zoster Vaccines Completed 06/13/2018, 02/08, 07/30/2014 HIB Vaccines Aged Out No longer eligi ble based on patient's age to complete this topic HPV Vaccines Aged Out No longer eligi ble based on patient's age to complete this topic Hepatitis A Vaccines Aged Out No long er eligible based on patient's age to complete this topic Hepatitis B Vaccines Aged Out No long er eligible based on patient's age to complete this topic IPV Vaccines Aged Out No longer eligi ble based on patient's age to complete this topic MMR Vaccines Aged Out No longer eligi ble based on patient's age to complete this topic Meningococcal ACWY Vaccine Aged Out N o longer eligible based on patient's age to complete this topic Meningococcal B Vaccine Aged Out No l onger eligible based on patient's age to complete this topic RSV Immunization Patients Under 20 months Aged Out No longer eligible based on patient's age to complete this topic Varicella Vaccines Aged Out No longer eligible based on patient's age to complete this topic Procedures Procedure Name Priority Date/Time Associated Diagnosis Comments DIAGNOSTIC MAMMOGRAPHY WITH CAD UNILATERAL Routine 03/05/2021 10:16 AM EDT Other abnormal and inconclusive findings on diagnostic imaging of breast ANNUAL BMP BLOOD TEST Routine 02/12/2021 URINE ALBUMIN CREATININE RATIO Routine 10/17/2020 HEMOGLOBIN A1C Routine 10/17/2020 LIPID PANEL Routine 04/04/2020 DXA BONE DENSITY STUDY 1+ SITS AXIAL SKEL Routine 12/20/2019 11:03 AM EDT Encounter for screening for osteoporosis HEPATITIS C SCREENING Routine 09/23/2017 COLONOSCOPY Routine 06/08/2015 from Last 3 Months or Most Recently Relevant to Health Maintenance Results * DIAGNOSTIC MAMMOGRAPHY WITH CAD UNILATERAL (03/05/2021 10:16 AM EDT) Anatomical Region Laterality Modality Mammography 02/04/2021 9:30 AM EDT Narrative 03/05/2021 10:20 AM EDT This is a summary report. The complete report is available in the patient's medical record. If you cannot access the medical record, please contact the sending organization for a detailed fax or copy. Diagnostic right mammography: And MLO spot compression view and true lateral view of the right breast were performed using 2D and tomosynthesis. There is no appreciable residual abnormal or suspicious density on the diagnostic views. There is no targetable abnormality for ultrasound correlation. Impression: Negative diagnostic right mammography. BI-RADS Category 1, negative. Procedure Note Ramos Aquino MD - 09/28/2022 This is a summary report. The complete report is available in thepatient's medical record. If you cannot access the medical record, pleasecontact the sending organization for a detailed fax or copy. Diagnostic right mammography: And MLO spot compression view and truelateral view of the right breast were performed using 2D andtomosynthesis. There is no appreciable residual abnormal or suspiciousdensity on the diagnostic views. There is no targetable abnormality forultrasound correlation. Impression: Negative diagnostic right mammography. BI-RADS Category 1, negative. Miguel Angel Roland MD [facility] [place] BI PROCEDURES Final Result * Annual BMP Blood Test (02/12/2021) Annual BMP Blood Test Abstracted us Historical Provider HEALTH MAINTENANCE Final Result * HM Urine Albumin Creatinine Ratio (10/17/2020) Urine Albumin Creatinine Ratio Abstracted [facility] HEALTH MAINTENANCE Final Result * (ABNORMAL) Hemoglobin A1c (10/17/2020) Hemoglobin A1C 7.2(A) <=6.5 % Blood Venous blood specimen / Unknown [facility] LAB BLOOD ORDERABLES Mesha l Result * (ABNORMAL) Lipid panel (04/04/2020) LDL/HDL Ratio 3 0 - 4 Triglycerides 164(A) 0 - 150 mg/dL Cholesterol 148 0 - 200 mg/dL HDL 51 >=40 mg/dL LDL Cholesterol 65 0 - 100 mg/dL Blood Venous blood specimen / Unknown [facility] LAB BLOOD ORDERABLES Mesha l Result * DXA BONE DENSITY STUDY 1+ SITS AXIAL SKEL (12/20/2019 11:03 AM EDT) Anatomical Region Laterality Modality Bone Densitometr y 09/20/2019 11:3 4 AM EST Narrative 12/20/2019 4:51 PM EDT BONE DENSITY SCAN (DEXA): FINDINGS: Lumbar Spine T-score is 1.0. (SD relative to 20-29 y/o adult) Z-score is 2.8. (SD relative to age matched peers) This is considered normal by WHO criteria. Diffuse spondylitic changes contribute to increased bone density score. Left Hip T-score is -1.6. Z-score is 0. This is considered osteopenia by WHO criteria. Comparison exam(s): 11/14/2008. *4.5% increase in lumbar spine bone mineral density which is statistically significant at the 95% confidence level. This increase may in part be secondary to spondylosis. *13.8% loss of left hip bone mineral density which is statistically significant at the 95% confidence level. IMPRESSION: IMPRESSION: Osteopenia by WHO criteria. This patient has a 8.2% risk of major osteoporotic fracture and a 0.8% risk of hip fracture over the next 10 years. (World Health Organization Fracture Risk Assessment) [facility] Department of Internal Medicine recommends using National Osteoporosis Foundation (NOF) guidelines in treatment decisions related to osteoporosis. NOF guidelines suggest considering treatment for postmenopausal women and men aged 50 or older presenting with the following: History of hip or vertebral fracture. T-score = -2.5 (DXA) at the femoral neck, total hip, or spine, after appropriate evaluation to exclude secondary causes. Low bone mass (T-score between -1.0 and -2.5 at the femoral neck or spine) AND a 10-year probability of a hip fracture = 3% OR a 10-year probability of a major osteoporosis-related fracture = 20% based on the [place]-adapted WHO algorithm Please note that all treatment decisions require clinical judgment and consideration of individual patient factors, including patient preferences, co-morbidities, previous drug use, risk factors not captured in the FRAX model (e.g., frailty, falls, vitamin D deficiency, increased bone turnover, interval significant decline in bone density) and possible under- or over-estimation of fracture risk by FRAX. Optional alternative screening schedule based on sundar Briggs., [facility] October 28, 2011 for patients with osteopenia (based on hip BMD T-score) is as follows: * advanced osteopenia (T scores -2.00 to -2.49), BMD testing every year * moderate osteopenia (T scores -1.50 to -1.99), BMD testing every 5 years mild osteopenia or normal BMD (T scores -1.50 and higher), BMD testing every 15 years Procedure Note Amna Wadsworth MD - 09/28/2022 BONE DENSITY SCAN (DEXA): FINDINGS: Lumbar Spine T-score is 1.0. (SD relative to 20-29 y/o adult) Z-score is 2.8. (SD relative to age matched peers) This is considered normal by WHO criteria. Diffuse spondylitic changescontribute to increased bone density score. Left Hip T-score is -1.6. Z-score is 0. This is considered osteopenia by WHO criteria. Comparison exam(s): 11/14/2008. *4.5% increase in lumbar spine bone mineral density which is statisticallysignificant at the 95% confidence level. This increase may in part be secondary tospondylosis. *13.8% loss of left hip bone mineral density which is statisticallysignificant at the 95% confidence level. IMPRESSION: IMPRESSION: Osteopenia by WHO criteria. This patient has a 8.2% risk of majorosteoporotic fracture and a 0.8% risk of hip fracture over the next 10 years. (World HealthOrganization Fracture Risk Assessment) [facility] Department of Internal Medicine recommendsusing National Osteoporosis Foundation (NOF) guidelines in treatment decisions related toosteoporosis. NOF guidelines suggest considering treatment for postmenopausal women and menaged 50 or older presenting with the following: History of hip or vertebral fracture. T-score = -2.5 (DXA) at the femoral neck, total hip, or spine, afterappropriate evaluation to exclude secondary causes. Low bone mass (T-score between -1.0 and -2.5 at the femoral neck or spine)AND a 10-year probability of a hip fracture = 3% OR a 10-year probability of a majorosteoporosis-related fracture = 20% based on the [place]-adapted WHO algorithm Please note that all treatment decisions require clinical judgment andconsideration of individual patient factors, including patient preferences, co- morbidities,previous drug use, risk factors not captured in the FRAX model (e.g., frailty, falls, vitaminD deficiency, increased bone turnover, interval significant decline in bone density) andpossible under- or over-estimation of fracture risk by FRAX. Optional alternative screening schedule based on sundar Briggs., NEJMJanuary 2011 for patients with osteopenia (based on hip BMD T-score) is as follows: * advanced osteopenia (T scores -2.00 to -2.49), BMD testing every year * moderate osteopenia (T scores -1.50 to -1.99), BMD testing every 5years mild osteopenia or normal BMD (T scores -1.50 and higher), BMD testingevery 15 years Vivi Desai MD IM DXA PROCEDURES Final Re sult * Hepatitis C Screening (09/23/2017) [facility] Hepatitis C Screening Abstracted us Historical Provider HEALTH MAINTENANCE Final Result * Colonoscopy (06/08/2015) Colonoscopy No interpretation , abstracted Anatomical Region Laterality Modality Other us Historical Provider HEALTH MAINTENANCE Final Result from Last 3 Months or Most Recently Relevant to Health Maintenance Care Teams Pulverizer Mill Operator Relationship Specialty Start Date End Date Miguel Angel Roland MD PCP - General 10/31/07
--- NOTE | 2025-04-26 13:30 | MHC.AU.HA3 ---
Hearing Instrument Follow-Up- Binaural Date of Visit: 04/26/25 Right Ear: Anderson, Model, Color, Serial Number: Christi Hahn [id number]-[id number], #[id number], Bejennifer Seconds Grader Repair Warranty: 01/14/2025 Seconds Grader Loss and Damage Warranty: 01/14/2025 [facility] Service Plan: 11/13/22 Battery Size: Rechargeable Muck Miner Blasting/Slim Tube: #1 Power Earmold/Dome/CShell/SlimTip:Canal Lock C-Shell #[id number] warranty 03/21/2023 Type of Wax Guard: CeruStop Dispensed By: [facility] Date of Fittin11/13/2021 Left Ear: Anderson, Model, Color, Serial Number: Christi Hahn P70-[id number], #[id number], Bejennifer Seconds Grader Repair Warranty: 01/14/2025 Seconds Grader Loss and Damage Warranty: 01/14/2025 [facility] Service Plan: 11/13/22 Battery Size: Rechargeable Muck Miner Blasting/Slim Tube: #1 Power Earmold/Dome/CShell/SlimTip: Canal Lock C-Shell Serial #[id number] Warranty 02/26/2025 Type of Wax Guard: CeruStop Dispensed By: [facility] Date of Fittin11/13/2021 Follow-Up Summary: Willy was on the schedule to drop off hearing aids today. According to the front office administrator, she was enraged to learn that she did not have an appointment to see a provider and would not be leaving until she was seen. She was accompanied by [facility] staff member today. Willy reports her hearing aids need to be cleaned and that she has trouble cleaning them herself. Left aid is missing wax guard, Willy reports she could not get the wax guard out and a staff member helped her and now there is no wax guard. Found right earmold with heavy coating of wax. Cleaned hearing aids and brushed debris from microphones (2). Cleaned earmolds (2) and replaced wax guards (2). Ran hearing aids [place] [employer] [id number] units. Willy tried to change a wax guard to show the difficulty she had been having. Discovered that the wax guard stick that Willy brought in had already been used and thus the wrong end was being inserted into the mold and could not remove the wax guard. Advised to throw sticks away after use and not attempt to re-use. Had Willy practice with a fresh wax guard and it worked fine. Willy reports difficulty cleaning the molds of wax build up. Advised to use an alcohol prep pad to wipe wax residue away and schedule appointments for maintenance as needed. Recommendations: Recommendations: Hearing instrument maintenance in 6 months, or sooner if needed. Diagnosis Code(s): Primary Diagnosis: H90.6 Mixed Hearing Loss, Bilateral Signature: Provider: Hai Crawley, CCC-A
== END 2025-04-26 10:20 | disposition home or self-care (01) ==
LOC: HO.SH 10:19
PROVIDERS: Visit Provider Internal Medicine
DX: Z01.118 Encounter for examination of ears and hearing with other abnormal findings (principal); H90.6 Mixed conductive and sensorineural hearing loss, bilateral
CPT/HCPCS: 92593; 99499

== ENCOUNTER 2025-04-26 11:17 | Outpatient (REF) | payer SELFPAY | END 2025-04-26 11:18 | disposition home or self-care (01) | LOC: HO.SH 11:17 | PROVIDERS: Visit Provider Internal Medicine | DX: H61.20 Impacted cerumen, unspecified ear (principal) | CPT/HCPCS: V5267 ==